=== PATIENT | female | born 1935 | race Caucasian/White ===

== ENCOUNTER 2017-09-27 15:01 | Emergency (ER) | payer MEDICARE ==
[2017-09-27] MEDS ORDERED: ORPHENADRINE CITRATE 60MG/2ML VIAL IM ONE (15:15)
--- NOTE | 2017-09-27 15:19 | Emergency Department Record ---
History of Present Illness - General Chief Complaint: Back Pain/Injury Stated Complaint: BACK SPASMS Time Seen by Provider: 09/27/17 15:14 Source: Patient, Family Mode of Arrival: Ambulatory Limitations: No limitations - History of Present Illness Initial Comments: 82 yo female presents with right sided back/flank pain. The pain is sharp. No fevers or chills. No nausea or vomiting. She states the pain starts in her flank and radiates around. Her gall bladder has been removed. The pain does occur with moving. She is better if still. Twisting to the side makes the pain occur. No pain down the leg. No weakness. No rash. No hematuria. MD Complaint: Back pain -: Days(s) (2) Similar Symptoms Previously: Yes Place: Home Radiation: None Severity: Moderate Quality: Sharp, Stabbing Consistency: Intermittent Improves With: Immobilization Worsens With: Movement Context: Bending Associated Symptoms: Denies other symptoms - Related Data Home Medications Medication Instructions Recorded Confirmed Last Taken Cyclobenzaprine HCl [Flexeril] 5 mg PO ASDIR 09/27/17 09/27/17 09/27/17 Oxycodone HCl/Acetaminophen 1 tab PO Q6H PRN 09/27/17 09/27/17 09/27/17 [Percocet 5mg/325mg] Allergies Allergy/AdvReac Type Severity Reaction Status Date / Time codeine Allergy Unknown NAUSEA AND Unverified 03/28/16 18:46 VOMITING hydromorphone HCl Allergy Unknown ALTERED Unverified 03/28/16 18:46 [From Dilaudid] MENTAL STATUS Allergies: Allergy Unknown HYPERSENSIT Uncoded 05/11/15 18:20 IVITY Review of Systems Constitutional: Denies: Chills, Fever, Malaise, Weakness Eyes: Denies: Eye discharge ENT: Denies: Congestion, Throat pain Respiratory: Denies: Cough, Dyspnea, Wheezes Cardiovascular: Denies: Chest pain, Palpitations, Syncope Endocrine: Denies: Fatigue, Polydipsia, Polyuria Gastrointestinal: Reports: Abdominal pain (flank pain on the right). Denies: Diarrhea, Nausea, Vomiting Genitourinary: Denies: Dysuria, Urgency Musculoskeletal: Reports: Back pain. Denies: Arthralgia, Joint swelling, Myalgia Skin: Denies: Bruising, Change in color, Rash Neurological: Denies: Confusion, Headache, Numbness Psychiatric: Denies: Anxiety Hematological/Lymphatic: Denies: Easy bleeding, Easy bruising, Swollen glands Past Medical History - SOCIAL HISTORY Smoking Status: Light tobacco smoker (<10/day) - RESPIRATORY Hx Respiratory Disorders: No - CARDIOVASCULAR Hx Cardio Disorders: Yes Hx Hypertension: Yes Comment:: Pt states that she has very minor HTN, Will follow up with PCP - NEURO Hx Neuro Disorders: No - GI Hx GI Disorders: Yes Hx Diverticulitis: Yes Hx Reflux: Yes Hx Obstructive Bowel: Yes (Bowel surgery in 1966) - Hx Genitourinary Disorders: No Comment:: weak bladder, stress incontinence - ENDOCRINE Hx Endocrine Disorders: No Hx Diabetes: No Hx Thyroid Disease: No - MUSCULOSKELETAL Hx Musculoskeletal Disorders: Yes Hx Arthritis: Yes - PSYCH Hx Psych Problems: No - HEMATOLOGY/ONCOLOGY Hx Hematology/Oncology Disorders: No Family Medical History Hx Cancer: Mother, Brother/Sister Hx Diabetes: Mother, Brother/Sister Hx Heart Disease: Mother Hx HTN: Mother Hx Kidney Disease: Brother/Sister Hx Stroke: Brother/Sister Physical Exam - General General Appearance: Alert, Oriented x3, Cooperative, No acute distress Limitations: No limitations - Head Head exam: Normal inspection - Eye Eye exam: Normal appearance, PERRL. negative: Conjunctival injection, Scleral icterus - ENT ENT exam: Normal exam, Mucous membranes moist Ear exam: Normal external inspection Nasal Exam: Normal inspection Mouth exam: Normal external inspection Teeth exam: Normal inspection - Neck Neck exam: Normal inspection, Full ROM. negative: Tenderness - Respiratory Respiratory exam: Normal lung sounds bilaterally. negative: Respiratory distress, Rhonchi, Stridor, Wheezes - Cardiovascular Cardiovascular Exam: Regular rate, Normal rhythm, Normal heart sounds - GI/Abdominal GI/Abdominal exam: Soft. negative: Tenderness - Rectal Rectal exam: Deferred - exam: Deferred - Extremities Extremities exam: Normal inspection, Full ROM, Normal capillary refill. negative: Joint swelling, Tenderness - Back Back exam: Reports: Normal inspection, CVA tenderness (R), Muscle spasm, Paraspinal tenderness, Tenderness, Vertebral tenderness. Denies: CVA tenderness (L), Full ROM, Rash noted - Neurological Neurological exam: Alert, Normal gait, Oriented X3 - Psychiatric Psychiatric exam: Normal affect, Normal mood. negative: Agitated, Anxious - Skin Skin exam: Dry, Intact, Normal color, Warm Course - Reevaluation(s) Reevaluation #1: 09/27/17 17:02 The CBC and BMP were reviewed No acute changes The UA is negative for acute infection or process 09/27/17 17:17 On recheck the examination is unchanged The pain is still very reproducible with twisting, bending, moving and tolerated well if still The CT scan was negative for acute process The patient was given warnings for extra help the next several days, caution with pain medication, always walk with help to avoid falls and take a stool softener to avoid constipation. 09/27/17 17:24 Medical Decision Making - Lab Data Result diagrams: 09/27/17 16:15 09/27/17 16:15 Disposition Disposition: Discharge Clinical Impression: Back muscle spasm Back pain Qualifiers: Back pain location: back pain in unspecified location Chronicity: acute Back pain laterality: right Qualified Code(s): M54.9 - Dorsalgia, unspecified Disposition: Home, Self-Care Condition: (1) Good Instructions: Low Back Strain (ED) Additional Instructions: Return to be seen if worse, any new symptoms or concerns Call your doctor for close follow up and to recheck this ER visit and the final results Continue your home pain medication and muscle relaxant you started yesterday and filled today Forms: Patient Portal Access Time of Disposition: 17:21 Quality - Quality Measures Quality Measures: Blunt Head Trauma (>2yr) - Blunt Head Trauma - Adult Quality Measure: Measure #415: Utilization of CT for Minor Blunt Head Trauma ICD10 Codes Entered: Yes Was CT ordered: No Sacaton Score: Please complete Aniyah Coma Scale above Utilization of CT for Minor Blunt Head Trauma: Not Eligible For Measure Additional Inclusion Criteria: More than 24hrs (OR) GCS not 15 (OR) CT not ordered. Not Eligible Reason: CT Not Ordered - Blood Pressure Screening Does Patient Have Any of the Following: No Blood Pressure Classification: Normal BP Reading Systolic Measurement: 114 Diastolic Measurement: 63 Screening for High Blood Pressure: < Normal BP, F/U Not Required > [G8783]
[2017-09-27] MEDS ORDERED: MORPHINE SULFATE 4MG/ML PREFILLED SYRINGE IVP ONE (15:32)
[2017-09-27 16:32] LABS: HEMATOCRIT 43.1 % (35.0-47.0); HEMOGLOBIN 14.2 gm/dl (11.6-16.0); MEAN CELL VOLUME 88.7 fl (81-97); MEAN CORPUSCULAR HEMOGLOBIN 29.2 pg (27-33); MEAN CORPUSCULAR HGB CONC 32.9 g/dl (32-36); MEAN PLATELET VOLUME 10.8 fl (7.4-10.4); PLATELET COUNT 312 K/uL (130-400); RED BLOOD COUNT 4.86 M/uL (3.80-5.40); WHITE BLOOD COUNT W/O DIFF 10.4 K/uL (4.2-12.2)
[2017-09-27 16:34] LABS: URINE APPEARANCE CLEAR; URINE BILIRUBIN NEGATIVE (NEGATIVE); URINE BLOOD TRACE-I (NEGATIVE); URINE COLOR ORANGE; URINE GLUCOSE (UA) NEGATIVE (NEGATIVE); URINE KETONE NEGATIVE (NEGATIVE); URINE LEUKOCYTE ESTERASE TRACE (NEGATIVE); URINE NITRITE NEGATIVE (NEGATIVE); URINE PROTEIN NEGATIVE (NEGATIVE)
[2017-09-27 16:49] LABS: BLOOD UREA NITROGEN 12 mg/dL (8-23); CREATININE 0.8 mg/dL (0.5-0.9); EST GLOMERULAR FILTRATION RATE > 60 mL/min
[2017-09-27 16:51] LABS: GLUCOSE,RANDOM 116 mg/dL (74-109); URINE BACTERIA NONE SEEN; URINE RBC NONE SEEN (NONE SEEN); URINE WBC 0 - 2 (0-2/hpf)
[2017-09-27] MEDS ORDERED: KETOROLAC 30 MG/ML VIAL IVP ONE (17:01)
--- NOTE | 2017-09-29 14:28 | CT SCAN REPORT ---
EXAM: CT SCAN ABDOMEN/PELVIS WO CONTRAST HISTORY: LOWER ABDOMINAL AND BACK PAIN. TECHNIQUE: Helical CT scan of the abdomen and pelvis obtained without intravenous contrast. Patient did not receive oral contrast. COMPARISON: CT abdomen and pelvis with contrast 07/05/2006, bilateral adrenal nodules. FINDINGS: Lung bases show minimal linear scar in the right lower lobe. Limited evaluation of the solid organs and vascular structures without intravenous contrast. 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 Stable bilateral adrenal adenomas. Slight increased size of the right renal cyst, which measures 6.8 cm. No hydronephrosis or renal calculi.Bowel has normal caliber. Moderate colonic diverticulosis, no acute inflammatory changes. No ascites or adenopathy. No extraluminal gas. Moderate scoliosis and degenerative change of the lumbar spine. IMPRESSION: 1. NO ACUTE ABNORMALITIES ARE IDENTIFIED IN THE ABDOMEN AND PELVIS. 2. STABLE BILATERAL ADRENAL ADENOMAS. 3. MODERATE DEGENERATIVE CHANGES OF THE LUMBAR SPINE. JOB NUMBER: [id number] MTDD
== END 2017-09-27 18:04 | disposition home or self-care (01) ==
LOC: ER 15:01
DX: M62.830 Muscle spasm of back (principal); M54.5 Low back pain; I10 Essential (primary) hypertension; F17.210 Nicotine dependence, cigarettes, uncomplicated
CPT/HCPCS: 99284 ×2; 96374; 96372; 96375; 80048; 81001; 85027; 74176; J1885; J2274; J2360

== ENCOUNTER 2018-09-09 14:43 | Inpatient (IN) | payer MEDICARE ==
[~2018-09-09 14:43] MED LIST: ONDANSETRON 4 MG ODT TABLET SL PRN
[2018-09-09] MEDS: METOCLOPRAMIDE 10 MG TABLET PO SCH ×2 (17:02→21:51)
[2018-09-09] MEDS: ACETAMINOPHEN 325 MG TAB PO PRN (18:00)
--- NOTE | 2018-09-09 18:36 | History & Physical ---
History of Present Illness - Date Date of Service for History & Physical: 09/09/18 - History of Present Illness Admitting Diagnosis: Deconditioning r/t fall, head injury, and L foot osteomyelitis. History of Present Illness: Erendira Early is an 82 y.o. F who admits to the Swing Bed Program d/t physical deconditioning and need for IV Therapy. Was recently hospitalized at [facility] from 08/26/2018 to 08/29/2018 for surgical debridement and removal of fixation screws with placement of antibiotic cement/beads d/t hx of left ankle fx that developed osteomyelitis. While there, she was seen by I.D. (Dr. Rogelio Srivastava) and was placed on Cefepime 2grams IVPB q. 12 hours and Levaquin 750mg PO q. 48 hours through 10/23/2018. She was discharged home with outpatient IV Therapy. While being transferred during her outpatient IV therapy, she fell out of her wheelchair and hit the back of her head. She was admitted to [facility] from 08/30/18 to 09/09/18 d/t subarachnoid hemorrhage and closed fracture of the occipital bone. Now has postconcussive syndrome. Other PMHx includes anxiety, depression, arthritis, skin cancer, GERD, incontinence. 09/09/18 1700 Reports that she has a left frontal headache. Helps when she wears sunglasses. Is doing well with Tylenol for pain control. Doesn't feel a need to take Oxycodone as was ordered in the hospital. Has been very dizzy. Was put on Reglan, Scopalomine patch, Zofran and Antivert with little effectiveness. Reports that bowels are moving now, although they weren't a few days ago. General - Cognitive Patterns Orientation: Oriented x3 - Communication Preferred Language?: Occitan Comprehension Ability: No Impairment Select best description of speech pattern: Clear Speech Ability to express ideas and wants: Understood Understanding verbal content: Understands - Psychosocial Well-Being Usual Living Arrangement: Children - Dental Status Unable to examine: No Broken or loosely fitting full or partial dentures: No No natural teeth or tooth fragment(s) (edentulous): No Abnormal mouth tissue (ulcers, masses, oral lesions, etc.): No Obvious or likely cavity or broken natural teeth: No Inflamed or bleeding gums or loose natural teeth: No Mouth/facial pain, discomfort or difficulty chewing: No - Nutrition Screening Poor oral intake > 1 week: No Unplanned weight loss in specified time frame: No Nutrition Support via tube feedings or parenteral nutrition: No Pressure Ulcer: No Significantly underweight define as BMI <18.5 kg/m2: No Albumin <2.5mg/dL: No Persistent nausea/vomiting/diarrhea >3 days: Yes Difficulty chewing/swallowing/mouth sores: No Admitting Diagnosis: No Nutrition Risk Score: Moderate Risk Review of Systems Reviewed: No additional complaints except as noted below Constitutional: Denies: Chills, Fever Eyes: Reports: Photophobia (d/t head injury) Respiratory: Denies: Cough, Dyspnea Cardiovascular: Denies: Chest pain, Dyspnea on exertion, Palpitations Gastrointestinal: Reports: Nausea. Denies: Abdominal pain, Constipation Genitourinary: Reports: Incontinence Neurological: Reports: Headache. Denies: Seizure Past Medical History - SOCIAL HISTORY Smoking Status: Light tobacco smoker (<10/day) - SURGICAL HISTORY Past Surgical History: hysterectomy. appendix. bowel. gallbladder. left shoulder repair. screws and plate in left foot r/t fx. left foot/ankle - RESPIRATORY Hx Respiratory Disorders: No - CARDIOVASCULAR Hx Cardio Disorders: Yes Hx Hypertension: Yes - NEURO Hx Neuro Disorders: No Hx Dizziness: Yes Comment:: hemmorhage - GI Hx GI Disorders: Yes Hx Diverticulitis: Yes Hx Reflux: Yes Hx Obstructive Bowel: Yes (Bowel surgery in 1966) - Hx Genitourinary Disorders: No Comment:: weak bladder, stress incontinence - ENDOCRINE Hx Endocrine Disorders: No Hx Diabetes: No Hx Thyroid Disease: No - MUSCULOSKELETAL Hx Musculoskeletal Disorders: Yes Hx Arthritis: Yes Comment:: osteomyelitis - PSYCH Hx Psych Problems: No - HEMATOLOGY/ONCOLOGY Hx Hematology/Oncology Disorders: No Family Medical History Any Significant Family History?: Yes Hx Cancer: Mother, Brother/Sister Hx Diabetes: Mother, Brother/Sister Hx Heart Disease: Mother Hx HTN: Mother Hx Kidney Disease: Brother/Sister Hx Stroke: Brother/Sister H&P Meds/Allergies - Allergies Allergies: Allergies Allergy/AdvReac Type Severity Reaction Status Date / Time codeine Allergy Unknown NAUSEA AND Unverified 03/28/16 18:46 VOMITING hydromorphone HCl Allergy Unknown ALTERED Unverified 03/28/16 18:46 [From Dilaudid] MENTAL STATUS Allergies: Allergy Unknown HYPERSENSIT Uncoded 05/11/15 18:20 IVITY - Active Medications Active Medications: Current Medications Acetaminophen (Tylenol 325mg) 650 mg PO Q4H PRN PRN Reason: PAIN - MILD TO MODERATE (1-7) Last Admin: 09/09/18 18:00 Dose: 650 mg Documented by: Enoxaparin Sodium (Lovenox) 40 mg SQ DAILY [facility] CEFEPIME HCL 2 gm/ Sodium (Chloride) 100 mls @ 200 mls/hr IVPB Q12HR [facility] Stop: 10/23/18 22:29 Levofloxacin (Levaquin Tab) 750 mg PO DAILY [facility] Stop: 10/23/18 10:01 Metoclopramide HCl (Reglan) 5 mg PO QIDACHS [facility] Last Admin: 09/09/18 17:02 Dose: 5 mg Documented by: Ondansetron HCl (Zofran Odt) 4 mg SL Q8H PRN PRN Reason: NAUSEA Pantoprazole Sodium (Protonix) 40 mg PO DAILYAC [facility] Polyethylene Glycol (Miralax) 17 gm PO DAILY [facility] Sertraline HCl (Zoloft) 100 mg PO DAILY [facility] Vitamin D (Vitamin D3) 1,000 unit PO DAILY [facility] Physical Exam - Vital Signs Vital Signs: Vital Signs - Last 24 Hrs Temp Pulse Resp BP Pulse Ox 09/09/18 14:45 98.5 F 53 L 16 132/73 98 - General General Appearance: Alert, Cooperative, No acute distress Limitations: Physical limitation (NWB to LLE) - Respiratory Respiratory exam: Normal lung sounds bilaterally - Cardiovascular Cardiovascular Exam: Regular rate, Normal rhythm, Normal heart sounds Peripheral Pulses: 2+: Dorsalis Pedis (R), Dorsalis Pedis (L) - GI/Abdominal GI/Abdominal exam: Soft, Normal bowel sounds - Extremities Extremities exam: Normal capillary refill, Other (sutures intact to left ankle, no signs of infection) - Neurological Neurological exam: Alert - Skin Skin exam: Dry Discharge Potential - Discharge Needs Community Services Used Prior to Admission: IV Therapy Patient Discharge Plan Description: Return Home Community Services Needed at Discharge: IV Therapy Plan - Swing Bed Certification Initial Certification Due: 09/09/18 14 Day Re-Cert Due: 09/23/18 44 Day Re-Cert Due: 10/23/18 74 Day Re-Cert Due: 11/22/18 - Detailed Diagnosis and Plan (1) Ankle osteomyelitis, left Current Visit: Yes Status: Acute Base Code: M86.9 - OSTEOMYELITIS, UNSPECIFIED Comment: 09/09/18 -Hx of subtalar fusion in July [address] Edwardo Henson -Evidence of failed fusion with CT on 08/23/18 -Underwent debridement and washout on 08/26/18 @ [facility] with Dr. Fady Henson -Followed by Infectious Disease - Dr. Rogelio Srivastava -IV Cefepime BID and Levaquin 750mg PO daily through 10/23/18 -NWB LLE (2) Post concussion syndrome Current Visit: Yes Status: Acute Base Code: F07.81 - POSTCONCUSSIONAL SYNDROME Comment: 09/09/18 -Dizziness/Nausea: stopped Antivert d/t BEERS list (and not effective) Continue Scopalomine patch for now Continue Reglan 5mg PO QID Continue Zofran 4mg q. 8 hours -Headache: Continue Tylenol 650mg PO q. 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 Current Visit: Yes Status: Acute Base Code: Z79.2 - INTERMEDIATE (CURRENT) USE OF ANTIBIOTICS Comment: 09/09/18 -Therapy needed to treat Osteomyelitis to left ankle -IV Cefepime BID through 10/23/18 -PO Levaquin daily through 10/23/18 (4) Physical deconditioning Current Visit: Yes Status: Acute Base Code: R53.81 - OTHER MALAISE Comment: 09/09/18 -PT/OT to evaluate and treat (5) Full code status Current Visit: Yes Status: Acute Base Code: Z78.9 - OTHER SPECIFIED HEALTH STATUS Comment: 09/09/18 -Full code this admission (6) DVT prophylaxis Current Visit: Yes Status: Acute Base Code: Z29.9 - ENCOUNTER FOR PROPHYLACTIC MEASURES, UNSPECIFIED Comment: 09/09/18 -Continue Lovenox 40mg subq daily
[2018-09-09] MEDS ORDERED: PNEUM 13-VAL/PF 0.5 ML IM ONE (20:47)
[2018-09-09] MEDS: CEFEPIME HCL 2 GM in 0.9 % SODIUM CHLORIDE 100ML 100 ML IVPB SCH (21:59)
[2018-09-10] MEDS: ACETAMINOPHEN 325 MG TAB PO PRN ×3 (06:22→18:15)
[2018-09-10] MEDS: METOCLOPRAMIDE 10 MG TABLET PO SCH ×5 (06:23→21:34)
[2018-09-10] MEDS: PANTOPRAZOLE SODIUM 40 MG TABLET PO SCH (06:23)
--- NOTE | 2018-09-10 09:48 | Rehab Evaluation ---
Patient Information - Patient Information Diagnosis: Deconditioning r/t fall, head injury and L foot osteomy Ordered Treatment: PT Evaluate and Treat Status: Initial Evaluation Past Medical/Surgical Hx: PAST MEDICAL/SURGICAL HISTORY Past Surgical History hysterectomy appendix bowel gallbladder left shoulder repair screws and plate in left foot r/t fx left foot/ankle PMH - Respiratory Hx Respiratory Disorders No PMH - Cardiovascular Hx Cardiovascular Disorders Yes Hx Hypertension Yes Comment: Pt states that she has very minor HTN, Will follow up with PCP PMH - Neuro Hx Neurological Disorders No Hx Dizziness Yes Comment: hemmorhage PMH - GI Hx Gastrointestinal Disorders Yes Hx Diverticulitis Yes Hx Gastroesophageal Reflux Yes Hx Obstructive Bowel Yes: Bowel surgery in 1966 PMH - Hx Genitourinary Disorders No Comment: weak bladder, stress incontinence PMH - Endocrine Hx Endocrine Disorders No Hx Diabetes No Hx Thyroid Disease No PMH - Musculoskeletal Hx Musculoskeletal Disorders Yes Hx Arthritis Yes Comment: osteomyelitis PMH - Psych Hx Psychiatric Problems No PMH - Hematology/Oncology Hx Hematology/Oncology No Disorders Premorbid Status: Detail (Patient received surgery on L ankle following a fracture approximately 1 year ago, but acquired osteomyelitis and required surgical intervention. Patient was discharged and was receiving outpatient IV therapy when she fell out of her wheelchair and hit her head. Patient was diagnosed with subarachnoid hemorrhage and fx of occipital bone from [facility]. Patient reports that over the past year following initial surgery, she has not fully recovered and has been using the wheelchair for her primary method of locomotion. Patient reports that she requires help from her daughter getting settled in the shower but is able to bathe herself independently. Patient's daughter reports that she would like her to work on strengthening her arms and legs to aide in transfers.) Social History: Detail (Patient previously lived with her daughter but will be living with her oldest daughter upon discharge. Her eldest daughter is and both are retired and are able to help patient with ADL's. Patient reports that there is a ramp for the entrance of the home with no stairs throughout the home. Patient reports that the bathroom has a tub, but has a shower bench present with a hand-held shower. No grab bars are present, but there are grab bars present on the shower bench. Patient reports that the toilet is elevated and has handles around it but no grab bars around the toilet. Patient also reports that she has a commode available. Patient reports that her primary goal is to be discharged by next Sunday to attend grandson's graduation.) - Time With Patient Total Time Spent With Patient (Min): 40 Treatment Procedures: Detail (low complexity) Subjective Information - Subjective Information Per Patient (Patient reported at initial portion of evaluation that she felt nauseous and slightly dizzy, but had no reports of pain. Patient also reported that dizziness increased from transitioning from supine to sitting EOB, with reports of the room spinning. Sunglasses and cold compress assisted in relieving of symptoms.) Objective Data - Mental Status Patient Orientation: Oriented x3 - Visual Perception Deficit (Patient reports that vision following fall is slightly blurred, but is likely result of postconcussion syndrome.) - ROM Not within normal limits (Left ankle range of motion is limited due to status post-surgery, as expected. All other range of motion of lower extremity was assessed and found to be within normal limits.) - Strength/Tone Not within normal limits (Patient's lower extremity range of motion was assessed and hip flexion 3/5 bilaterally with no reports of pain. All other range of motion except left ankle DF, and PF were assessed and determined to be 5/5.) - Coordination Appears within normal limits for therapeutic activities (Patient's lower extremity coordination was assessed functionally with patient sitting L EOB and putting on her pants and right sock. Patient was stable throughout with SBAx2 for safety.) - Bed Mobility Independent (Patient began therapy session supine in hospital bed and transfered to left EOB with supervision x2. Patient required verbal cueing on breathing and slowing down with the transfer due to vertigo signs and symptoms. When returning from sitting left EOB to supine, patient was independent with supervision x2, but required maximal assist x2 for scooting up in bed.) - Balance Balance Sitting: Good (Patient was assessed with sitting balance by sitting L EOB while weight shifting and utilizing core muscle activation for stabilization to put on pants. Patient also presented functional sitting core strength during manual muscle test and did not require assistance to maintain balance.) Therapy Assessment - Therapy Assessment Detail (Patient was dizzy and nauseous throughout therapy session. Patient reports that dizziness symptoms consist of the room spinning, turning to the left, and with transitional movements. Symptoms imply possible vertigo involvement, but is difficult to determine fully at this time due to post-concu ssive symptoms. Upon transfering from supine to sitting, patient had increased signs and symptoms of dizziness, but once keeping head in midline patient reported that symptoms decreased. Patient demonstrated sufficient core strength for sitting balance activities. Lower extremity muscle strength except for the left ankle was assessed. Bilateral hip flexion was rated 3/5 and is likely due to the patient being wheelchair bound over the past year. Patient's daughter reports that they would like patient to gain strength in upper and lower extremities to assist in transfers. Patient also reports that she would like to attend her grandson's graduation in 2 weeks. Therefore, further strength training, transfer training, sitting tolerance, core strengthening, and wheelchair propulsion would be beneficial treatment focuses to meet patient and family member's goals and reach patient's prior level of function.) Problem List - Problem List Physical Therapy Problem List: Detail (1. Decreased sitting tolerance due to vertigo / post-concussive symptoms. 2. Decreased hip flexion strength impacting transfers and bed mobility. 3. Decreased tolerance for wheelchair propulsion for independent mobility.) Goals - Goals Physical Therapy Goals: 1. Patient will tolerate sitting for 20 minutes consistently to complete seated exercises and progress patient towards goal of sitting at [facility] graduation. 2. Will assess pivot transfer from sitting EOB to wheelchair. 3. Will assess patient's wheelchair mobility. Prognosis - Prognosis Moderate (Patient presents functional sitting balance to aide in ADL's. Patient is able to progress in strength to meet family's goals on easier transfers and bed mobility. However, patient is limited due to her vertigo / post-concussion syndrome symptoms and it is impacting her ability to meet these goals at this time. With further strengthening, she is expected to improve in transfers, but it is difficult to determine at this time how much her symptoms from her vertigo / concussion will subside at this time.) Plan - Plan Physical Therapy Plan: Patient is recommended to receive subacute therapy 1-2x a day Sunday-Sunday to focus on improving patient's strength, transfers, bed mobility, sitting tolerance, and wheelchair mobility.
[2018-09-10] MEDS: SCOPOLAMINE 1 PATCH TDSY TD SCH (10:11)
[2018-09-10] MEDS: CHOLECALCIFEROL 1,000 UNIT TABLET PO SCH (10:11)
[2018-09-10] MEDS: POLYETHYLENE GLY 17 GM PACKET PO SCH (10:11)
[2018-09-10] MEDS: LEVOFLOXACIN 500 MG TABLET PO SCH (10:11)
[2018-09-10] MEDS: REMOVE PATCH 1 EACH MISC TD SCH (10:11)
[2018-09-10] MEDS: ENOXAPARIN 40 MG/0.4 ML SYR SQ SCH (10:12)
[2018-09-10] MEDS: SERTRALINE HCL 50 MG TABLET PO SCH (10:13)
[2018-09-10] MEDS: CEFEPIME HCL 2 GM in 0.9 % SODIUM CHLORIDE 100ML 100 ML IVPB SCH ×2 (10:13→21:35)
--- NOTE | 2018-09-10 12:25 | Rehab Evaluation ---
Patient Information - Patient Information Diagnosis: Deconditioning r/t fall, head injury and L foot osteomyelitis Ordered Treatment: OT Evaluate and Treat Status: Initial Evaluation Past Medical/Surgical Hx: PAST MEDICAL/SURGICAL HISTORY Past Surgical History hysterectomy appendix bowel gallbladder left shoulder repair screws and plate in left foot r/t fx left foot/ankle PMH - Respiratory Hx Respiratory Disorders No PMH - Cardiovascular Hx Cardiovascular Disorders Yes Hx Hypertension Yes Comment: Pt states that she has very minor HTN, Will follow up with PCP PMH - Neuro Hx Neurological Disorders No Hx Dizziness Yes Comment: hemmorhage PMH - GI Hx Gastrointestinal Disorders Yes Hx Diverticulitis Yes Hx Gastroesophageal Reflux Yes Hx Obstructive Bowel Yes: Bowel surgery in 1966 PMH - Hx Genitourinary Disorders No Comment: weak bladder, stress incontinence PMH - Endocrine Hx Endocrine Disorders No Hx Diabetes No Hx Thyroid Disease No PMH - Musculoskeletal Hx Musculoskeletal Disorders Yes Hx Arthritis Yes Comment: osteomyelitis PMH - Psych Hx Psychiatric Problems No PMH - Hematology/Oncology Hx Hematology/Oncology No Disorders Premorbid Status: Detail (Patient received surgery on L ankle following a fracture approximately 1 year ago, but acquired osteomyelitis and required surgical intervention. Patient was discharged and was receiving outpatient IV therapy when she fell out of her wheelchair and hit her head. Patient was diagnosed with subarachnoid hemorrhage and fx of occipital bone from [facility]. Patient reports that over the past year following initial surgery, she has not fully recovered and has been using the wheelchair for her primary method of locomotion. Patient reports that she requires help from her daughter getting settled in the shower but is able to bathe herself independently. Patient's daughter reports that she would like her to work on strengthening her arms and legs to aide in transfers.) Social History: Detail (Patient previously lived with her daughter but will be living with her oldest daughter upon discharge. Her eldest daughter is and both are retired and are able to help patient with ADL's. Patient reports that there is a ramp for the entrance of the home with no stairs throughout the home. Patient reports that the bathroom has a tub, but has a shower bench present with a hand-held shower. No grab bars are present, but there are grab bars present on the shower bench. Patient reports that the toilet is elevated and has handles around it but no grab bars around the toilet. Patient also reports that she has a commode available. Patient reports that her primary goal is to be discharged by next Sunday to attend grandson's graduation. She has an electric wheelchair, a 4 wheeled walker, a 2 wheeled walker and a manual wheelchair. Prior to this illness pt was Ind with dressing self, bathing self after being assisted with shower transfer, washing dishes while seated on a stool, propelling her wheelchair and transferring.) Precautions: [place], Fall, Other (Pt has significant dizziness at times. NWB left LE) - Time With Patient Total Time Spent With Patient (Min): 40 Treatment Procedures: Detail (OT eval low complexity) Subjective Information - Subjective Information Per Patient, Other (Per daughter) Objective Data - Pain Pain Present: No - Mental Status Patient Orientation: Oriented x3 - Visual Perception Appears within normal limits for therapeutic activities (Pt reports she does not wear glasses. No visual deficits were noted although pt reports some visual impairments at times since the fall.) - ROM Not within normal limits (Claudio shoulder flexion limited to 90 degrees, remaining claudio UE AROM WNL) - Strength/Tone Not within normal limits (Claudio shoulder strength 4-/5, claudio elbow flexion and extension 4/5, claudio vegetable vendor 4/5. Pt's daughter reports increased UE weakness due to decreased activity level over the last year.) - Coordination Appears within normal limits for therapeutic activities - Bed Mobility Needs Assist (Ind with supine to sit and sit to supine. Pt required max assist x 2 to scoot up in bed.) - Transfers Dependent (Not formally assessed due to patient feeling dizzy and fatigued.) - Balance Balance Sitting: Good - Sensation Intact - ADL's/IADL's Detail (Pt was able to don right slipper sock and hospital pants although she did not want to stand and pull pants over hips, she was able to partially pull pants over hips while lying in bed. Other self care tasks are being completed by nursing and/or family.) Therapy Assessment - Therapy Assessment Detail (Pt presents with decreased activity tolerance for functional mobility and ADLs, decreased Ind with self cares, impaired UE strength and endurance and decreased Ind and safety with functional mobility.) Problem List - Problem List Physical Therapy Problem List: Detail (1. Decreased sitting tolerance due to vertigo / post-concussive symptoms. 2. Decreased hip flexion strength impacting transfers and bed mobility. 3. Decreased tolerance for wheelchair propulsion for independent mobility.) Occupational Therapy Problem List: Detail (1. Decreased Ind with total body dressing. 2. Decreased Ind with showering. 3. Decreased UE strength/endurance and overall activity tolerance. 4. Decreased Ind and safety with functional mobility needed for Ind self cares.) Goals - Goals Physical Therapy Goals: 1. Patient will tolerate sitting for 20 minutes consistently to complete seated exercises and progress patient towards goal of sitting at grandson's graduation. 2. Will assess pivot transfer from sitting EOB to wheelchair. 3. Will assess patient's wheelchair mobility. Occupational Therapy Goals: 1. Pt will be Ind with total body dressing. 2. Pt will be Ind with showering in sitting. 3. Pt will improve overall endurance and UE strength to allow safe and Ind ADLs and functional mobility Prognosis - Prognosis Good Plan - Plan Physical Therapy Plan: Patient is recommended to receive subacute therapy 1-2x a day Sunday-Sunday to focus on improving patient's strength, transfers, bed mobility, sitting tolerance, and wheelchair mobility. Occupational Therapy Plan: OT 2-4 times per week to address self cares, endurance, UE strength and functional mobility needed for safe and Ind ADLs.
--- NOTE | 2018-09-10 16:59 | Physical Therapy Tx Note ---
Physical Therapy Tx Note - Treatment Note Tolerated: Poor Total Time Spent With Patient: 0 Physical Therapy Tx Note: Detail (Patient refused physical therapy due to not feeling well.) Physical Therapy Problem List: Detail (1. Decreased sitting tolerance due to vertigo / post-concussive symptoms. 2. Decreased hip flexion strength impacting transfers and bed mobility. 3. Decreased tolerance for wheelchair propulsion for independent mobility.) Physical Therapy Goals: 1. Patient will tolerate sitting for 20 minutes consistently to complete seated exercises and progress patient towards goal of sitting at grandson's graduation. 2. Will assess pivot transfer from sitting EOB to wheelchair. 3. Will assess patient's wheelchair mobility. Physical Therapy Plan: Patient is recommended to receive subacute therapy 1-2x a day Sunday-Sunday to focus on improving patient's strength, transfers, bed mobility, sitting tolerance, and wheelchair mobility.
[2018-09-11] MEDS: ACETAMINOPHEN 325 MG TAB PO PRN ×3 (06:31→17:34)
[2018-09-11] MEDS: PANTOPRAZOLE SODIUM 40 MG TABLET PO SCH (06:32)
[2018-09-11] MEDS: METOCLOPRAMIDE 10 MG TABLET PO SCH ×4 (06:32→22:00)
[2018-09-11] MEDS: SERTRALINE HCL 50 MG TABLET PO SCH (10:40)
[2018-09-11] MEDS: POLYETHYLENE GLY 17 GM PACKET PO SCH (10:40)
[2018-09-11] MEDS: CHOLECALCIFEROL 1,000 UNIT TABLET PO SCH (10:40)
[2018-09-11] MEDS: ENOXAPARIN 40 MG/0.4 ML SYR SQ SCH (10:41)
[2018-09-11] MEDS: CEFEPIME HCL 2 GM in 0.9 % SODIUM CHLORIDE 100ML 100 ML IVPB SCH ×2 (10:41→22:11)
[2018-09-11] MEDS: LEVOFLOXACIN 500 MG TABLET PO SCH (10:41)
--- NOTE | 2018-09-11 10:43 | Occupational Therapy Tx Note ---
Occupational Therapy Tx Note - Treatment Note Tolerated: Good Total Time Spent With Patient: 40 (ADL) Occupational Therapy Treatment Note: Detail (S: Pt resting in bed, reports nausea and headache but willing to participate. O: Supine to Indly with HOB raised and using bed rails. Pt able to complete brushing hair, washing face and oral hygiene with set up at bedside. Pt able to sit up at EOB for approx. 25 minutes without complaints of nausea. Pt completed standing pivot transfer from EOB to wheelchair with min assist x 1 and verbal cues for NWB status on LLE. Pt was not able to maintain WB status and reports this is how she has been transferring for a year. Pt propelled self to toilet with min assist. Stand pivot transfer to toilet with use of grab bars and CG assist. Pt removed briefs with mod assist to tear at sides. Pt toileted Indly and donned briefs Indly over feet. She was able to stand using grab bars and pull briefs over hips Indly. Pt pivoted to wheelchair with CG assist and propelled self to sink Indly. She washed hands Indly. Pt propelled self back to EOB and transferred into bed (quadruped) and to supine with SBA. A: Pt not able to maintain NWB on LLE with transfers, no c/o dizziness or nausea with treatment, Ind with gr ooming/hygiene after set up) Occupational Therapy Problem List: Detail (1. Decreased Ind with total body dressing. 2. Decreased Ind with showering. 3. Decreased UE streng th/endurance and overall activity tolerance. 4. Decreased Ind and safety with functional mobility needed for Ind self cares.) Occupational Therapy Goals: 1. Pt will be Ind with total body dressing. 2. Pt will be Ind with showering in sitting. 3. Pt will improve overall endurance and UE strength to allow safe and Ind ADLs and functional mobility Prognosis: Good Occupational Therapy Plan: OT 2-4 times per week to address self cares, endurance, UE strength and functional mobility needed for safe and Ind ADLs.
--- NOTE | 2018-09-11 13:05 | Physical Therapy Tx Note ---
Physical Therapy Tx Note - Treatment Note Physical Therapy Tx Note: Detail (Therapy session is a no charge and was jointly treated with occupational therapy. Patient reported dizziness initially in session, but was cued with pursed lip breathing and reported no symptoms throughout remainder of session. Patient began therapy session sitting L EOB completing ADL's such as toothbrushing, shaving, and combing hair. Patient transfered completing R pivot transfer to wheelchair. Patient refused to use walker to assist with transfer. Patient also was reminded to maintain her nonweight bearing status throughout transfer. Patient then propelled wheelchair with upper extremities 13 feet to the restroom. Patient completed standing pivot transfer with minimal assistance x1 to the right and refused to use the walker and refused to follow non-weight bearing status even with consistent cueing. Patient then completed standing pivot transfer from commode to wheelchair to the right with minimal assistance x1 with refusal to use 2-wheeled walker for support and broke precautions again. Patient then propelled wheelchair using upper extremities against vaca and feet against the floor, continuing to not follow precautions even with reminder from therapist. Patient then completed standing transfer climbing forward into bed and knelt on left knee, avoiding weight bearing on left ankle to get into bed with supervision x2. Patient then transfered into supine in bed with supervision x2 and was left with call light at end of session.) Physical Therapy Problem List: Detail (1. Decreased sitting tolerance due to vertigo / post-concussive symptoms. 2. Decreased hip flexion strength impacting transfers and bed mobility. 3. Decreased tolerance for wheelchair propulsion for independent mobility.) Physical Therapy Goals: 1. Patient will tolerate sitting for 20 minutes cons istently to complete seated exercises and progress patient towards goal of sitting at grandson's graduation. 2. Will assess pivot transfer from sitting EOB to wheelchair. 3. Will assess patient's wheelchair mobility. Physical Therapy Plan: Patient is recommended to receive subacute therapy 1-2x a day Sunday-Sunday to focus on improving patient's strength, transfers, bed mobility, sitting tolerance, and wheelchair mobility.
--- NOTE | 2018-09-11 16:13 | Physical Therapy Tx Note ---
Physical Therapy Tx Note - Treatment Note Total Time Spent With Patient: 30 Physical Therapy Tx Note: Detail (Patient began therapy session supine in bed with daughter present in room. Patient reported no signs or symptoms of dizziness or nausea throughout session. Patient was educated on resisted tricep and bicep curls with yellow theraband 15x bilaterally. Patient then completed SLR 10x, isometric quad sets 5s hold 10x, and isometric glut sets 5s hold 10x. Patient was left supine in bed with call light in hand at the end of the therapy session.) Physical Therapy Problem List: Detail (1. Decreased sitting tolerance due to vertigo / post-concussive symptoms. 2. Decreased hip flexion strength impacting transfers and bed mobility. 3. Decreased tolerance for wheelchair propulsion for independent mobility.) Physical Therapy Goals: 1. Patient will tolerate sitting for 20 minutes consistently to complete seated exercises and progress patient towards goal of sitting at grandson's graduation. 2. Will assess pivot transfer from sitting E OB to wheelchair. 3. Will assess patient's wheelchair mobility. Physical Therapy Plan: Patient is recommended to receive subacute therapy 1-2x a day Sunday-Sunday to focus on improving patient's strength, transfers, bed mobility, sitting tolerance, and wheelchair mobility.
[2018-09-12] MEDS: METOCLOPRAMIDE 10 MG TABLET PO SCH ×4 (06:33→22:09)
[2018-09-12] MEDS: PANTOPRAZOLE SODIUM 40 MG TABLET PO SCH (06:33)
[2018-09-12] MEDS: ENOXAPARIN 40 MG/0.4 ML SYR SQ SCH (09:24)
[2018-09-12] MEDS: CEFEPIME HCL 2 GM in 0.9 % SODIUM CHLORIDE 100ML 100 ML IVPB SCH ×2 (09:24→22:09)
[2018-09-12] MEDS: POLYETHYLENE GLY 17 GM PACKET PO SCH (09:25)
[2018-09-12] MEDS: LEVOFLOXACIN 500 MG TABLET PO SCH (09:25)
[2018-09-12] MEDS: SERTRALINE HCL 50 MG TABLET PO SCH (09:26)
[2018-09-12] MEDS: CHOLECALCIFEROL 1,000 UNIT TABLET PO SCH (09:26)
[2018-09-12] MEDS: ACETAMINOPHEN 325 MG TAB PO PRN ×2 (12:24→16:26)
--- NOTE | 2018-09-12 13:52 | Physical Therapy Tx Note ---
Physical Therapy Tx Note - Treatment Note Tolerated: Good Total Time Spent With Patient: 45 Physical Therapy Tx Note: Detail (Pt lying diagonally across bed with R LE over edge of bed, head of bed elevated. Pt's daughter Sarina present in room. Pt was independent w/bed mobility to sit at edge of bed, slowly; tolerated 8 minutes before independently returning to reclined position in bed. Complained of headache, dizziness, nausea; asked for emesis basin but no emesis. Provided w/wet washcloth on head, which helped. Participated with UE exercises w/yellow t-band: pull ups x 10 B, hor abd x 10 B, pull downs x 10 B, biceps curls x 10 B; and LE exercises: SLR x 10 B, hip abd x 10 B, heel slides x 10 B, hip add x 10 w/pillow. Declined attempting to sit up again. Provided w/ice chips for nausea. Left in bed w/call light in reach; dtr still present in room.) Physical Therapy Problem List: Detail (1. Decreased sitting tolerance due to vertigo / post-concussive symptoms. 2. Decreased hip flexion strength impacting transfers and bed mobility. 3. Decreased tolerance for wheelchair propulsion for independent mobility.) Physical Therapy Goals: 1. Patient will tolerate sitting for 20 minutes consistently to complete seated exercises and progress patient towards goal of sitting at grandson's graduation. 2. Will assess pivot transfer from sitting EOB to wheelchair. 3. Will assess patient's wheelchair mobility. Prognosis: Good Physical Therapy Plan: Patient is recommended to receive subacute therapy 1-2x a day Sunday-Sunday to focus on improving patient's strength, transfers, bed mobility, sitting tolerance, and wheelchair mobility.
--- NOTE | 2018-09-12 14:44 | Physical Therapy Tx Note ---
Physical Therapy Tx Note - Treatment Note Tolerated: Good Total Time Spent With Patient: 30 Physical Therapy Tx Note: Detail (Pt was supine in bed upon arrival. Pt states that she is in pain and does not want to get up to edge of bed. Pt did complete ex's of ankle pumps bilateral, heel slides on right, SLR bilaterally,all x 10 each. Pt completed UE flex and horizontal abduction x 10 bilateral each. Pt completed gluteal squeezes, quad sets, and elbow presses x 10 bilaterally each. Pt remained supine in bed after treatment and stated no increase in pain. Pt was given an ice pack to left foot/ankle for swelling.) Physical Therapy Problem List: Detail (1. Decreased sitting tolerance due to vertigo / post-concussive symptoms. 2. Decreased hip flexion strength impacting transfers and bed mobility. 3. Decreased tolerance for wheelchair propulsion for independent mobility.) Physical Therapy Goals: 1. Patient will tolerate sitting for 20 minutes consistently to complete seated exercises and progress patient towards goal of sitting at grandson's graduation. 2. Will assess pivot transfer from sitting EOB to wheelchair. 3. Will assess patient's wheelchair mobility. Prognosis: Good Physical Therapy Plan: Patient is recommended to receive subacute therapy 1-2x a day Sunday-Sunday to focus on improving patient's strength, transfers, bed mobility, sitting tolerance, and wheelchair mobility.
[2018-09-13] MEDS: METOCLOPRAMIDE 10 MG TABLET PO SCH ×4 (06:33→22:12)
[2018-09-13] MEDS: PANTOPRAZOLE SODIUM 40 MG TABLET PO SCH (06:34)
--- NOTE | 2018-09-13 10:28 | Occupational Therapy Tx Note ---
Occupational Therapy Tx Note - Treatment Note Tolerated: Good Total Time Spent With Patient: 45 (ADL) Occupational Therapy Treatment Note: Detail (S: Pt resting in bed, agreeable to shower. O: Supine to sit Indly although she had increased dizziness upon sitting up for a min. Pt was able to pivot transfer to wheelchair with min assist although she is refusing to use walker and is not able to maintain NWB on left foot. Pt propelled self to shower Indly and again pivot transferred to shower seat/commode with min assist. Pt doffed PJ gown Indly and briefs were doffed per OT. She was able to complete total body showering after set up Indly. Pt was able to dry self and apply deoderant and powder Indly. Pt donned bra with min assist, shirt Indly, briefs and pants with assist to pull up over buttocks while in standing. Pt donned right sock Indly. Pt transferred to toilet and completed toileting with assist for pants mgmt. Pt transferred back to wheelchair with CG assist and propelled self to room Indly. Pt brushed hair Indly. A: Pt had no c/o dizziness or nausea while performing self care tasks, she did have dizziness with supine to sit and after initial transfer into wheelchair. Pt is not able to maintain NWB status on left LE and is not ag reeable to using walker for transfers. She demonstrated significant improvement with endurance and self cares today.) Occupational Therapy Problem List: Detail (1. Decreased Ind with total body dressing. 2. Decreased Ind with showering. 3. Decreased UE strength/endurance and overall activity tolerance. 4. Decreased Ind and safety with functional mobility needed for Ind self cares.) Occupational Therapy Goals: 1. Pt will be Ind with total body dressing. 2. Pt will be Ind with showering in sitting. 3. Pt will improve overall endurance and UE strength to allow safe and Ind ADLs and functional mobility Prognosis: Good Occupational Therapy Plan: OT 2-4 times per week to address self cares, endurance, UE strength and functional mobility needed for safe and Ind ADLs.
[2018-09-13] MEDS: POLYETHYLENE GLY 17 GM PACKET PO SCH (11:30)
[2018-09-13] MEDS: LEVOFLOXACIN 500 MG TABLET PO SCH (11:30)
[2018-09-13] MEDS: CHOLECALCIFEROL 1,000 UNIT TABLET PO SCH (11:31)
[2018-09-13] MEDS: SERTRALINE HCL 50 MG TABLET PO SCH (11:31)
[2018-09-13] MEDS: ACETAMINOPHEN 325 MG TAB PO PRN ×2 (11:33→22:20)
[2018-09-13] MEDS: ENOXAPARIN 40 MG/0.4 ML SYR SQ SCH (11:33)
[2018-09-13] MEDS: REMOVE PATCH 1 EACH MISC TD SCH (11:34)
[2018-09-13] MEDS: SCOPOLAMINE 1 PATCH TDSY TD SCH (11:34)
[2018-09-13] MEDS: CEFEPIME HCL 2 GM in 0.9 % SODIUM CHLORIDE 100ML 100 ML IVPB SCH ×2 (11:34→22:12)
--- NOTE | 2018-09-13 15:56 | Physical Therapy Tx Note ---
Physical Therapy Tx Note - Treatment Note Tolerated: Poor Physical Therapy Tx Note: Detail (Upon entering room patient was supine in bed reporting that she was very nauseous and did not want to participate in therapy today. Patient reported that she had worked with OT and then visited the [facility] and sat up for 2 hours total prior to scheduled therapy session. Patient refused physical therapy but agreed to appointment on Sunday09/16/18.) Physical Therapy Problem List: Detail (1. Decreased sitting tolerance due to vertigo / post-concussive symptoms. 2. Decreased hip flexion strength impacting transfers and bed mobility. 3. Decreased tolerance for wheelchair propulsion for independent mobility.) Physical Therapy Goals: 1. Patient will tolerate sitting for 20 minutes consistently to complete seated exercises and progress patient towards goal of sitting at grandson's graduation. 2. Will assess pivot transfer from sitting EOB to wheelchair. 3. Will assess patient's wheelchair mobility. Physical Therapy Plan: Patient is recommended to receive subacute therapy 1-2x a day Sunday-Sunday to focus on improving patient's strength, transfers, bed mobility, sitting tolerance, and wheelchair mobility.
[2018-09-14] MEDS: ACETAMINOPHEN 325 MG TAB PO PRN ×2 (06:47→22:04)
[2018-09-14] MEDS: PANTOPRAZOLE SODIUM 40 MG TABLET PO SCH (06:49)
[2018-09-14] MEDS: METOCLOPRAMIDE 10 MG TABLET PO SCH ×4 (06:49→21:51)
--- NOTE | 2018-09-14 09:17 | Physician Progress Note ---
Subjective - Date Date of Physician Progress Note: 09/14/18 - Subjective Subjective Comment: On rounds this morning the patient is pleasant and doing well. She has no complaint and says that she is getting up out of bed and able go to the bathroom, take a shower and was able to go to the gift shop two days ago. The patient is excited about going to the [employer] with her family. Objective - Vital Signs Vital Signs: Vital Signs - Last 24 Hrs Temp Pulse Resp BP Pulse Ox 09/14/18 08:00 98.1 F 49 L 16 129/68 99 09/13/18 20:00 98.8 F 58 L 16 150/83 100 - General General Appearance: Alert, Cooperative, No acute distress Limitations: Physical limitation (NWB to LLE) - Respiratory Respiratory exam: Normal lung sounds bilaterally - Cardiovascular Cardiovascular Exam: Regular rate, Normal rhythm, Normal heart sounds Peripheral Pulses: 2+: Dorsalis Pedis (R), 3+: Radial (R), Radial (L) - GI/Abdominal GI/Abdominal exam: Soft, Normal bowel sounds - Extremities Extremities exam: Normal capillary refill, Other (left ankle dressed with guaze and boot ) - Neurological Neurological exam: Alert, Oriented X3 - Psychiatric Psychiatric exam: Normal affect, Normal mood - Skin Skin exam: Dry Assessment and Plan - Assessment and Plan (1) Physical deconditioning Current Visit: Yes Status: Acute Base Code: R53.81 - OTHER MALAISE Comment: 09/14/18: - PT/OT: Patient is participating in therapy but has had some dizziness which limits her progress. She is to continue therapy daily as tolerated. (2) Ankle osteomyelitis, left Current Visit: Yes Status: Acute Base Code: M86.9 - OSTEOMYELITIS, UNSPECIFIED Comment: 09/13/18 -Hx of subtalar fusion in July [address] Edwardo Henson -Evidence of failed fusion with CT on 08/23/18 -Underwent debridement and washout on 08/26/18 @ [facility] with Dr. Fady Henson -Followed by Infectious Disease - Dr. Rogelio Srivastava -IV Cefepime BID and Levaquin 750mg PO daily through 10/23/18 -NWB LLE (3) Post concussion syndrome Current Visit: Yes Status: Acute Base Code: F07.81 - POSTCONCUSSIONAL SYNDROME Comment: 09/14/18 - Pt still having dizzy spells. - Continue Scopalomine patch, Reglan 5mg PO QID, Zofran 4mg q. 8 hours, Tylenol 650mg q4h PRN (4) DVT prophylaxis Current Visit: Yes Status: Acute Base Code: Z29.9 - ENCOUNTER FOR PROPHYLACTIC MEASURES, UNSPECIFIED Comment: 09/14/18 -Continue Lovenox 40mg subq daily (5) Full code status Current Visit: Yes Status: Acute Base Code: Z78.9 - OTHER SPECIFIED HEALTH STATUS Comment: 09/14/18 -Full code this admission - Disposition Disposition: The patient is progressing well and is motivated to participate with PT/OT. She has a good prognosis and with completion of therapy and IV abx should be able to return home within 1-2 weeks. DVT/PE Assessment - Risk for VTE Risk for VTE: No Risk Level: High Risk Assessment Date: 09/14/18 Risk Assessment Time: 09:20 VTE Orders Placed or Will Be Placed: Yes - Active Medicaitons Current Medications: Current Medications Acetaminophen (Tylenol 325mg) 650 mg PO Q4H PRN PRN Reason: PAIN - MILD TO MODERATE (1-7) Last Admin: 09/14/18 06:47 Dose: 650 mg Documented by: Enoxaparin Sodium (Lovenox) 40 mg SQ DAILY [facility] Last Admin: 09/13/18 11:33 Dose: 40 mg Documented by: CEFEPIME HCL 2 gm/ Sodium (Chloride) 100 mls @ 200 mls/hr IVPB Q12HR [facility] Stop: 10/23/18 22:29 Last Infusion: 09/13/18 22:45 Dose: Infused Documented by: Levofloxacin (Levaquin Tab) 750 mg PO DAILY [facility] Stop: 10/23/18 10:01 Last Admin: 09/13/18 11:30 Dose: 750 mg Documented by: Metoclopramide HCl (Reglan) 5 mg PO QIDACHS [facility] Last Admin: 09/14/18 06:49 Dose: 5 mg Documented by: Miscellaneous (Remove Patch) 1 each TD Q72H [facility] Last Admin: 09/13/18 11:34 Dose: 1 each Documented by: Ondansetron HCl (Zofran Odt) 4 mg SL Q8H PRN PRN Reason: NAUSEA Pantoprazole Sodium (Protonix) 40 mg PO DAILYAC [facility] Last Admin: 09/14/18 06:49 Dose: 40 mg Documented by: Polyethylene Glycol (Miralax) 17 gm PO DAILY [facility] Last Admin: 09/13/18 11:30 Dose: Not Given Documented by: Scopolamine (Transderm-Scop) 1 patch TD Q72H [facility] Last Admin: 09/13/18 11:34 Dose: 1 patch Documented by: Sertraline HCl (Zoloft) 100 mg PO DAILY [facility] Last Admin: 09/13/18 11:31 Dose: 100 mg Documented by: Vitamin D (Vitamin D3) 1,000 unit PO DAILY [facility] Last Admin: 09/13/18 11:31 Dose: 1,000 unit Documented by:
[2018-09-14] MEDS: SERTRALINE HCL 50 MG TABLET PO SCH (10:20)
[2018-09-14] MEDS: ENOXAPARIN 40 MG/0.4 ML SYR SQ SCH (10:20)
[2018-09-14] MEDS: CHOLECALCIFEROL 1,000 UNIT TABLET PO SCH (10:20)
[2018-09-14] MEDS: LEVOFLOXACIN 500 MG TABLET PO SCH (10:21)
[2018-09-14] MEDS: POLYETHYLENE GLY 17 GM PACKET PO SCH (10:22)
[2018-09-14] MEDS: DOCUSATE SODIUM 100 MG CAPSULE PO SCH (10:22)
[2018-09-14] MEDS: CEFEPIME HCL 2 GM in 0.9 % SODIUM CHLORIDE 100ML 100 ML IVPB SCH ×2 (10:23→21:59)
[2018-09-15] MEDS: METOCLOPRAMIDE 10 MG TABLET PO SCH ×4 (06:38→21:34)
[2018-09-15] MEDS: PANTOPRAZOLE SODIUM 40 MG TABLET PO SCH (06:38)
[2018-09-15] MEDS: CEFEPIME HCL 2 GM in 0.9 % SODIUM CHLORIDE 100ML 100 ML IVPB SCH ×2 (10:25→21:38)
[2018-09-15] MEDS: LEVOFLOXACIN 500 MG TABLET PO SCH (10:26)
[2018-09-15] MEDS: SERTRALINE HCL 50 MG TABLET PO SCH (10:26)
[2018-09-15] MEDS: DOCUSATE SODIUM 100 MG CAPSULE PO SCH (10:26)
[2018-09-15] MEDS: CHOLECALCIFEROL 1,000 UNIT TABLET PO SCH (10:26)
[2018-09-15] MEDS: POLYETHYLENE GLY 17 GM PACKET PO SCH (10:26)
[2018-09-15] MEDS: ENOXAPARIN 40 MG/0.4 ML SYR SQ SCH (10:26)
[2018-09-15] MEDS: ACETAMINOPHEN 325 MG TAB PO PRN (21:36)
[2018-09-16] MEDS: METOCLOPRAMIDE 10 MG TABLET PO SCH ×4 (07:24→21:26)
[2018-09-16] MEDS: PANTOPRAZOLE SODIUM 40 MG TABLET PO SCH (07:24)
[2018-09-16] MEDS: CHOLECALCIFEROL 1,000 UNIT TABLET PO SCH (10:42)
[2018-09-16] MEDS: SERTRALINE HCL 50 MG TABLET PO SCH (10:42)
[2018-09-16] MEDS: LEVOFLOXACIN 500 MG TABLET PO SCH (10:42)
[2018-09-16] MEDS: DOCUSATE SODIUM 100 MG CAPSULE PO SCH (10:43)
[2018-09-16] MEDS: SCOPOLAMINE 1 PATCH TDSY TD SCH (10:43)
[2018-09-16] MEDS: REMOVE PATCH 1 EACH MISC TD SCH (10:43)
[2018-09-16] MEDS: ENOXAPARIN 40 MG/0.4 ML SYR SQ SCH (10:43)
[2018-09-16] MEDS: POLYETHYLENE GLY 17 GM PACKET PO SCH (10:43)
[2018-09-16] MEDS: CEFEPIME HCL 2 GM in 0.9 % SODIUM CHLORIDE 100ML 100 ML IVPB SCH ×3 (10:53→21:19)
--- NOTE | 2018-09-16 12:26 | Physical Therapy Tx Note ---
Physical Therapy Tx Note - Treatment Note Tolerated: Poor Total Time Spent With Patient: 0 Physical Therapy Tx Note: Detail (Patient was supine in bed upon start of therapy session. Patient refused physical therapy reporting that she was nauseous and was planning on going out with her daughters later that day. Patient was asked if she wanted to freshen up prior to leaving but patient declined.) Physical Therapy Problem List: Detail (1. Decreased sitting tolerance due to vertigo / post-concussive symptoms. 2. Decreased hip flexion strength impacting transfers and bed mobility. 3. Decreased tolerance for wheelchair propulsion for independent mobility.) Physical Therapy Goals: 1. Patient will tolerate sitting for 20 minutes consistently to complete seated exercises and progress patient towards goal of sitting at grandson's graduation. 2. Will assess pivot transfer from sitting EOB to wheelchair. 3. Will assess patient's wheelchair mobility. Physical Therapy Plan: Patient is recommended to receive subacute therapy 1-2x a day Sunday-Sunday to focus on improving patient's strength, transfers, bed mobility, sitting tolerance, and wheelchair mobility.
[2018-09-17] MEDS: PANTOPRAZOLE SODIUM 40 MG TABLET PO SCH (06:21)
[2018-09-17] MEDS: METOCLOPRAMIDE 10 MG TABLET PO SCH ×4 (08:10→21:10)
[2018-09-17] MEDS: CEFEPIME HCL 2 GM in 0.9 % SODIUM CHLORIDE 100ML 100 ML IVPB SCH ×2 (10:15→21:11)
[2018-09-17] MEDS: DOCUSATE SODIUM 100 MG CAPSULE PO SCH (10:15)
[2018-09-17] MEDS: SERTRALINE HCL 50 MG TABLET PO SCH (10:15)
[2018-09-17] MEDS: LEVOFLOXACIN 500 MG TABLET PO SCH (10:15)
[2018-09-17] MEDS: CHOLECALCIFEROL 1,000 UNIT TABLET PO SCH (10:15)
[2018-09-17] MEDS: POLYETHYLENE GLY 17 GM PACKET PO SCH (10:16)
[2018-09-17] MEDS: ENOXAPARIN 40 MG/0.4 ML SYR SQ SCH (10:16)
--- NOTE | 2018-09-17 13:54 | Occupational Therapy Tx Note ---
Occupational Therapy Tx Note - Treatment Note Tolerated: Good Total Time Spent With Patient: 40 (ADL, ther ex) Occupational Therapy Treatment Note: Detail (S: Pt resting in bed, agreeable to OT. O: Supine to sit Indly and pivot transferred to wheelchair with CG assist. Pt propelled self to toilet and completed pivot transfer using grab bar and she completed toileting Indly. Pt donned pants and she was able to stand at toilet using grab bar and pull pants over hips with CG assist. Pt transferred to wheelchair with SBA and propelled self to sink Indly, she washed hands indly. Pt donned slipper sock, bra and shirt Indly. Pt transported to rehab gym via wheelchair and completed marco antonio UE repetitive, overhead reaching with resistive clothespins x 35 reps each UE. Pt transported back to room via wheelchair. Pt pivot transferred into recliner with SBA and she was left with call button in reach. A: Ind with toileting and total body dressing, significant improvement in endurance and functional mobility.) Occupational Therapy Problem List: Detail (1. Decreased Ind with total body dressing. 2. Decreased Ind with showering. 3. Decreased UE strength/endurance and overall activity tolerance. 4. Decreased Ind and safety with functional mobility needed for Ind self cares.) Occupational Therapy Goals: 1. Pt will be Ind with total body dressing. 2. Pt will be Ind with showering in sitting. 3. Pt will improve overall endurance and UE strength to allow safe and Ind ADLs and functional mobility Prognosis: Good Occupational Therapy Plan: OT 2-4 times per week to address self cares, endurance, UE strength and functional mobility needed for safe and Ind ADLs.
--- NOTE | 2018-09-17 14:25 | Physical Therapy Tx Note ---
Physical Therapy Tx Note - Treatment Note Total Time Spent With Patient: 30 Physical Therapy Tx Note: Detail (Patient began therapy sitting in chair with daughter present in the room. Patient was assessed completing standing pivot transfer by crawling forward into chair with left knee first and swinging her body around to sit, while maintaining her nonweight bearing status with supervision assistance x1. Patient then propelled wheelchair total of 500 feet with rest breaks approximately every 50-100 feet. Patient propelled wheelchair up and down ramp into automatic doorway of the hospital and was able to propel over different surfaces. Patient afterwards completed vehicle transfer from [facility] into the van. Patient completed transfer with left knee first, then climbed forward into vehicle while maintaining nonweight bearing status of left ankle with supervision assistance x1. Patient did report slight dizziness during transfer, but was instructed to move slower and reported decreased signs/symptoms. Patient left with daughters and was signed out of hospital to go shopping at end of session.) Physical Therapy Problem List: Detail (1. Decreased sitting tolerance due to vertigo / post-concussive symptoms. 2. Decreased hip flexion strength impacting transfers and bed mobility. 3. Decreased tolerance for wheelchair propulsion for independent mobility.) Physical Therapy Goals: 1. Patient will tolerate sitting for 20 minutes c onsistently to complete seated exercises and progress patient towards goal of sitting at grandson's graduation. 2. Will assess pivot transfer from sitting EOB to wheelchair. 3. Will assess patient's wheelchair mobility. Physical Therapy Plan: Patient is recommended to receive subacute therapy 1-2x a day Sunday-Sunday to focus on improving patient's strength, transfers, bed mobility, sitting tolerance, and wheelchair mobility.
--- NOTE | 2018-09-17 21:53 | Physician Progress Note ---
Subjective - Date Date of Physician Progress Note: 09/17/18 - Subjective Location: Lower extremity Consistency: Intermittent Objective - Vital Signs Vital Signs: Vital Signs - Last 24 Hrs Temp Pulse Resp BP BP Pulse Ox 09/17/18 20:00 98.1 F 61 16 131/58 96 09/17/18 10:45 97.9 F 148/68 09/17/18 08:00 97.9 F 54 L 16 148/68 95 - General General Appearance: Alert, Oriented x3, Cooperative, No acute distress Limitations: Physical limitation (NWB to LLE) - Head Head exam: Normocephalic - Eye Eye exam: Normal appearance, PERRL - ENT ENT exam: Normal exam, Mucous membranes moist - Respiratory Respiratory exam: Normal lung sounds bilaterally - Cardiovascular Cardiovascular Exam: Regular rate, Normal rhythm, Normal heart sounds Peripheral Pulses: 2+: Dorsalis Pedis (R), Dorsalis Pedis (L), 3+: Radial (R), Radial (L) - GI/Abdominal GI/Abdominal exam: Soft, Normal bowel sounds - Rectal Rectal exam: Deferred - exam: Deferred - Extremities Extremities exam: Normal capillary refill, Other (left ankle dressed with guaze and boot ) - Neurological Neurological exam: Alert, Oriented X3 - Psychiatric Psychiatric exam: Normal affect, Normal mood - Skin Skin exam: Dry, Other (left ankle, surgical sutures remain, awaiting ortho confirmation to remove) Assessment and Plan - Assessment and Plan (1) Physical deconditioning Current Visit: Yes Status: Acute Base Code: R53.81 - OTHER MALAISE Comment: 09/17/18 -pt and daughter consulted today about refusing PT, pt had goals of being able to tolerate 2 hours of activities (ie attend her grandson's graduation). -pt was able to tolerate 7 hours of outside activity this weekend as she was with her family for the day -POC to d/c or sunday with possible home PT/OT and outpt infusion 09/14/18: - PT/OT: Patient is participating in therapy but has had some dizziness which limits her progress. She is to continue therapy daily as tolerated. (2) Ankle osteomyelitis, left Current Visit: Yes Status: Acute Base Code: M86.9 - OSTEOMYELITIS, UNSPECIFIED Comment: 09/17/18 -pt has sutures from most recent procedure, awaiting ortho to confirm removal plan -Hx of subtalar fusion in July [address] Edwardo Henson -Evidence of failed fusion with CT on 08/23/18 -Underwent debridement and washout on 08/26/18 @ [facility] with Dr. Fady Henson -Followed by Infectious Disease - Dr. 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 Comment: 09/17/18 -BMP ordered for the AM, continue current meds -pt to be set up for outpt IV infusion BID for cefepime and levaquin 750mg PO QD to continue until 10/23/18 09/09/18 -Therapy needed to treat Osteomyelitis to left ankle -IV Cefepime BID through 10/23/18 -PO Levaquin daily through 10/23/18 (4) Post concussion syndrome Current Visit: Yes Status: Acute Base Code: F07.81 - POSTCONCUSSIONAL SYNDROME Comment: 09/17/18 -dizzy spells improving per pt and daughter, while out with family yesterday, pt was able to tolderate mild nausea and dizziness, continue with activities and denied vomiting -not needing sunglasses inside as CROUCH are improving -potential [facility] rehab referral for post concussive evaluation -continue current meds 09/14/18 - Pt still having dizzy spells. - Continue Scopalomine patch, Reglan 5mg PO QID, Zofran 4mg q. 8 hours, Tylenol 650mg q4h PRN (5) DVT prophylaxis Current Visit: Yes Status: Acute Base Code: Z29.9 - ENCOUNTER FOR PROPHYLACTIC MEASURES, UNSPECIFIED Comment: 09/17/18 -Continue Lovenox 40mg subq daily (6) Full code status Current Visit: Yes Status: Acute Base Code: Z78.9 - OTHER SPECIFIED HEALTH STATUS Comment: 09/17/18 -Full code this admission Results - Labs Result Diagrams: 09/18/18 06:00 09/18/18 06:00 - Imaging and Cardiology CT scan - head Status: Report reviewed DVT/PE Assessment - Risk for VTE Risk for VTE: No Risk Level: High Risk Assessment Date: 09/14/18 Risk Assessment Time: 09:20 VTE Orders Placed or Will Be Placed: Yes - Active Medicaitons Current Medications: Current Medications Acetaminophen (Tylenol 325mg) 650 mg PO Q4H PRN PRN Reason: PAIN - MILD TO MODERATE (1-7) Last Admin: 09/15/18 21:36 Dose: 650 mg Documented by: Docusate Sodium (Colace) 100 mg PO DAILY [facility] Last Admin: 09/17/18 10:15 Dose: 100 mg Documented by: Enoxaparin Sodium (Lovenox) 40 mg SQ DAILY [facility] Last Admin: 09/17/18 10:16 Dose: 40 mg Documented by: CEFEPIME HCL 2 gm/ Sodium (Chloride) 100 mls @ 200 mls/hr IVPB Q12HR [facility] Stop: 10/23/18 22:29 Last Admin: 09/17/18 21:11 Dose: 200 mls/hr Documented by: Levofloxacin (Levaquin Tab) 750 mg PO DAILY [facility] Stop: 10/23/18 10:01 Last Admin: 09/17/18 10:15 Dose: 750 mg Documented by: Metoclopramide HCl (Reglan) 5 mg PO QIDACHS [facility] Last Admin: 09/17/18 21:10 Dose: 5 mg Documented by: Miscellaneous (Remove Patch) 1 each TD Q72H [facility] Last Admin: 09/16/18 10:43 Dose: 1 each Documented by: Ondansetron HCl (Zofran Odt) 4 mg SL Q8H PRN PRN Reason: NAUSEA [facility] Last Admin: 09/17/18 06:21 Dose: 40 mg Documented by: Polyethylene Glycol (Miralax) 17 gm PO DAILY [facility] Last Admin: 09/17/18 10:16 Dose: Not Given Documented by: Scopolamine (Transderm-Scop) 1 patch TD Q72H [facility] Last Admin: 09/16/18 10:43 Dose: 1 patch Documented by: Sertraline HCl (Zoloft) 100 mg PO DAILY [facility] Last Admin: 09/17/18 10:15 Dose: 100 mg Documented by: Vitamin D (Vitamin D3) 1,000 unit PO DAILY [facility] Last Admin: 09/17/18 10:15 Dose: 1,000 unit Documented by: AMI Plan - Labs Result Diagrams: 09/18/18 06:00 09/18/18 06:00
[2018-09-18] MEDS: PANTOPRAZOLE SODIUM 40 MG TABLET PO SCH (06:08)
[2018-09-18 07:13] LABS: ABSOLUTE NEUTROPHIL COUNT 4.15; BASO % 0.4 % (0-6); EOS % 3.3 % (0-6); GRAN % 75.1 % (47-80); HEMATOCRIT 35.9 % (35.0-47.0); HEMOGLOBIN 11.6 gm/dl (11.6-16.0); LYMPH % 14.3 % (16-45); MEAN CELL VOLUME 85.7 fl (81-97); MEAN CORPUSCULAR HEMOGLOBIN 27.7 pg (27-33); MEAN CORPUSCULAR HGB CONC 32.3 g/dl (32-36); MEAN PLATELET VOLUME 10.8 fl (7.4-10.4); MONO % 6.9 % (0-9); PLATELET COUNT 167 K/uL (130-400); RED BLOOD COUNT 4.19 M/uL (3.80-5.40); RED CELL DISTRIBUTION WIDTH 15.2 % (11.5-14.5); WHITE BLOOD COUNT W/O DIFF 5.5 K/uL (4.2-12.2)
[2018-09-18 07:25] LABS: BLOOD UREA NITROGEN 12 mg/dL (8-23); CREATININE 0.7 mg/dL (0.5-0.9); EST GLOMERULAR FILTRATION RATE > 60 mL/min; GLUCOSE,RANDOM 102 mg/dL (74-109)
[2018-09-18] MEDS: POTASSIUM CHLORIDE 20 MEQ/15ML CUP PO SCH ×2 (08:36→13:59)
[2018-09-18] MEDS: METOCLOPRAMIDE 10 MG TABLET PO SCH ×4 (08:36→23:20)
[2018-09-18] MEDS: ENOXAPARIN 40 MG/0.4 ML SYR SQ SCH (10:44)
[2018-09-18] MEDS: CEFEPIME HCL 2 GM in 0.9 % SODIUM CHLORIDE 100ML 100 ML IVPB SCH ×2 (10:44→23:18)
[2018-09-18] MEDS: LEVOFLOXACIN 500 MG TABLET PO SCH (10:46)
[2018-09-18] MEDS: DOCUSATE SODIUM 100 MG CAPSULE PO SCH (10:46)
[2018-09-18] MEDS: POLYETHYLENE GLY 17 GM PACKET PO SCH (10:47)
[2018-09-18] MEDS: CHOLECALCIFEROL 1,000 UNIT TABLET PO SCH (10:56)
[2018-09-18] MEDS: SERTRALINE HCL 50 MG TABLET PO SCH (10:56)
--- NOTE | 2018-09-18 13:46 | Occupational Therapy Tx Note ---
Occupational Therapy Tx Note - Treatment Note Tolerated: Good Total Time Spent With Patient: 40 (ADL) Occupational Therapy Treatment Note: Detail (S: Pt requesting to try showering again. O: Supine to sit Indly and pivot transferred to wheelchair with SBA. Pt propelled self to shower and pivot transferred to commode/shower seat with supervision. Pt doffed PJ top and briefs Indly. Pt completed total body showering Indly without rest breaks or c/o nausea. Pt dried self Indly and donned PJ gown indly. Pt transferred to wheelchair with supervision and propelled to toilet Indly and transferred to toilet with grab bar and supervision. Pt toileted and donned briefs Indly. Pt propelled self to recliner and pivot transferred to chair with supervision. A: Pt had less fatigue today and was Ind with showering in sitting. Pt continues to transfer with some weight bearing on right LE and is unable to maintain NWB status.) Occupational Therapy Problem List: Detail (1. Decreased Ind with total body dressing. 2. Decreased Ind with showering. 3. Decreased UE strength/endurance and overall activity tolerance. 4. Decreased Ind and safety with functional mobility needed for Ind self cares.) Occupational Therapy Goals: 1. Pt will be Ind with total body dressing. 2. Pt will be Ind with showering in sitting. 3. Pt will improve overall endurance and UE strength to allow safe and Ind ADLs and functional mobility Prognosis: Good Occupational Therapy Plan: OT 2-4 times per week to address self cares, endurance, UE strength and functional mobility needed for safe and Ind ADLs.
--- NOTE | 2018-09-18 14:01 | Physical Therapy Tx Note ---
Physical Therapy Tx Note - Treatment Note Physical Therapy Tx Note: Detail (Patient reports that she currently has no dif ficulty with mobility. Patient is independent with home exercises and declines wanting a stronger thera-band for her exercises. Patient currently has met all physical therapy goals of tolerating activity for greater than 20 minutes, independent with pivot transfers, and is independent with wheelchair mobility. At this time patient is discharged from subacute physical therapy.) Physical Therapy Problem List: Detail (1. Decreased sitting tolerance due to vertigo / post-concussive symptoms. 2. Decreased hip flexion strength impacting transfers and bed mobility. 3. Decreased tolerance for wheelchair propulsion for independent mobility.) Physical Therapy Goals: 1. Patient will tolerate sitting for 20 minutes consistently to complete seated exercises and progress patient towards goal of sitting at grandson's graduation. (met). 2. Will assess pivot transfer from sitting EOB to wheelchair. (met). 3. Will assess patient's wheelchair mobility. (met) Prognosis: Good Physical Therapy Plan: Patient is discharged from subacute PT.
[2018-09-19 06:37] LABS: BLOOD UREA NITROGEN 12 mg/dL (8-23); CREATININE 0.6 mg/dL (0.5-0.9); EST GLOMERULAR FILTRATION RATE > 60 mL/min; GLUCOSE,RANDOM 98 mg/dL (74-109)
[2018-09-19] MEDS: PANTOPRAZOLE SODIUM 40 MG TABLET PO SCH (06:59)
[2018-09-19] MEDS: METOCLOPRAMIDE 10 MG TABLET PO SCH ×4 (07:00→22:19)
[2018-09-19] MEDS: ACETAMINOPHEN 325 MG TAB PO PRN (09:19)
[2018-09-19] MEDS: CHOLECALCIFEROL 1,000 UNIT TABLET PO SCH (10:59)
[2018-09-19] MEDS: ENOXAPARIN 40 MG/0.4 ML SYR SQ SCH (10:59)
[2018-09-19] MEDS: LEVOFLOXACIN 500 MG TABLET PO SCH (11:00)
[2018-09-19] MEDS: POLYETHYLENE GLY 17 GM PACKET PO SCH (11:00)
[2018-09-19] MEDS: DOCUSATE SODIUM 100 MG CAPSULE PO SCH (11:00)
[2018-09-19] MEDS: REMOVE PATCH 1 EACH MISC TD SCH (11:01)
[2018-09-19] MEDS: SCOPOLAMINE 1 PATCH TDSY TD SCH (11:04)
[2018-09-19] MEDS: SERTRALINE HCL 50 MG TABLET PO SCH (11:04)
[2018-09-19] MEDS: CEFEPIME HCL 2 GM in 0.9 % SODIUM CHLORIDE 100ML 100 ML IVPB SCH ×2 (11:05→22:19)
[2018-09-20] MEDS: METOCLOPRAMIDE 10 MG TABLET PO SCH ×4 (06:57→21:33)
[2018-09-20] MEDS: PANTOPRAZOLE SODIUM 40 MG TABLET PO SCH (06:58)
--- NOTE | 2018-09-20 10:52 | Occupational Therapy Tx Note ---
Occupational Therapy Tx Note - Treatment Note Occupational Therapy Treatment Note: Detail (No OT scheduled today as pt is at an appointment.) Occupational Therapy Problem List: Detail (1. Decreased Ind with total body dressing. 2. Decreased Ind with showering. 3. Decreased UE strength/endur ance and overall activity tolerance. 4. Decreased Ind and safety with functional mobility needed for Ind self cares.) Occupational Therapy Goals: 1. Pt will be Ind with total body dressing. 2. Pt will be Ind with showering in sitting. 3. Pt will improve overall endurance and UE strength to allow safe and Ind ADLs and functional mobility Occupational Therapy Plan: OT 2-4 times per week to address self cares, endurance, UE strength and functional mobility needed for safe and Ind ADLs.
[2018-09-20] MEDS: CEFEPIME HCL 2 GM in 0.9 % SODIUM CHLORIDE 100ML 100 ML IVPB SCH ×2 (12:28→21:33)
[2018-09-20] MEDS: LEVOFLOXACIN 500 MG TABLET PO SCH (12:29)
[2018-09-20] MEDS: DOCUSATE SODIUM 100 MG CAPSULE PO SCH (12:29)
[2018-09-20] MEDS: ENOXAPARIN 40 MG/0.4 ML SYR SQ SCH (12:30)
[2018-09-20] MEDS: POLYETHYLENE GLY 17 GM PACKET PO SCH (12:30)
[2018-09-20] MEDS: CHOLECALCIFEROL 1,000 UNIT TABLET PO SCH (12:30)
[2018-09-20] MEDS: SERTRALINE HCL 50 MG TABLET PO SCH (12:31)
[2018-09-20] MEDS: HEPARIN SODIUM FLUSH 100 UNITS/ML SYR 5ML IV PRN (22:15)
[2018-09-21] MEDS: 0.9 % SODIUM CHLORIDE 10ML SYR IVP PRN ×2 (05:54→05:56)
[2018-09-21] MEDS: HEPARIN SODIUM FLUSH 100 UNITS/ML SYR 5ML IV PRN (05:55)
[2018-09-21 06:07] LABS: ABSOLUTE NEUTROPHIL COUNT 4.29; BASO % 0.2 % (0-6); EOS % 2.1 % (0-6); GRAN % 74.1 % (47-80); HEMATOCRIT 34.7 % (35.0-47.0); HEMOGLOBIN 11.2 gm/dl (11.6-16.0); LYMPH % 15.1 % (16-45); MEAN CELL VOLUME 86.1 fl (81-97); MEAN CORPUSCULAR HGB CONC 32.3 g/dl (32-36); MEAN PLATELET VOLUME 10.5 fl (7.4-10.4); MONO % 8.5 % (0-9); PLATELET COUNT 152 K/uL (130-400); RED BLOOD COUNT 4.03 M/uL (3.80-5.40); RED CELL DISTRIBUTION WIDTH 15.1 % (11.5-14.5); WHITE BLOOD COUNT W/O DIFF 5.8 K/uL (4.2-12.2)
[2018-09-21 06:08] LABS: MEAN CORPUSCULAR HEMOGLOBIN 27.7 pg (27-33)
[2018-09-21 06:31] LABS: BLOOD UREA NITROGEN 15 mg/dL (8-23); C-REACTIVE PROTEIN 0.34 mg/dL (<0.5); CREATININE 0.7 mg/dL (0.5-0.9); EST GLOMERULAR FILTRATION RATE > 60 mL/min; GLUCOSE,RANDOM 112 mg/dL (74-109)
[2018-09-21 06:47] LABS: ERYTHROCYTE SEDIMENTATION RATE 15 mm/hr (0-30)
[2018-09-21] MEDS: METOCLOPRAMIDE 10 MG TABLET PO SCH (06:58)
[2018-09-21] MEDS: PANTOPRAZOLE SODIUM 40 MG TABLET PO SCH (06:58)
--- NOTE | 2018-09-21 09:18 | Discharge Summary ---
Providers Discharge Summary Date: 09/21/18 Date of admission: 09/09/18 14:43 Expected Date of Discharge: 09/21/18 Attending physician: ERICA GRECO Primary care physician: RICK GRAVES D.O. Physical Exam - Vital Signs Vital Signs: Vital Signs - Last 24 Hrs Temp Pulse Resp BP Pulse Ox 09/21/18 07:52 98.2 F 54 L 18 160/64 98 09/20/18 20:00 98.0 F 61 20 153/72 98 - General General Appearance: Alert, Oriented x3, Cooperative, No acute distress Limitations: Physical limitation (NWB to LLE) - Head Head exam: Normocephalic - Eye Eye exam: Normal appearance, PERRL - ENT ENT exam: Normal exam, Mucous membranes moist - Respiratory Respiratory exam: Normal lung sounds bilaterally - Cardiovascular Cardiovascular Exam: Regular rate, Normal rhythm, Normal heart sounds Peripheral Pulses: 2+: Dorsalis Pedis (R), Dorsalis Pedis (L), 3+: Radial (R), Radial (L) - GI/Abdominal GI/Abdominal exam: Soft, Normal bowel sounds - Rectal Rectal exam: Deferred - exam: Deferred - Extremities Extremities exam: Normal capillary refill, Other (left ankle dressed with guaze and boot, sutures removed by ortho, steri stripes now) - Neurological Neurological exam: Alert, Oriented X3 - Psychiatric Psychiatric exam: Normal affect, Normal mood - Skin Skin exam: Dry, Other (left ankle, sutures removed by ortho, steri stripes intact) Hospitalization - Hospitalization Admission Diagnosis: Deconditioning due to fall - Problem List (1) Physical deconditioning Current Visit: Yes Status: Acute Base Code: R53.81 - OTHER MALAISE Comment: 09/21/18 -pt has made her goals, able to tolerate activity 5-6 hours at a time and dizziness/nasuea tolerable -home services completed by lilo oliveira 09/17/18 -pt and daughter consulted today about refusing PT, pt had goals of being able to tolerate 2 hours of activities (ie attend her grandson's graduation). -pt was able to tolerate 7 hours of outside activity this weekend as she was with her family for the day -POC to d/c or sunday with possible home PT/OT and outpt infusion 09/14/18: - PT/OT: Patient is participating in therapy but has had some dizziness which limits her progress. She is to continue therapy daily as tolerated. (2) Ankle osteomyelitis, left Current Visit: Yes Status: Acute Base Code: M86.9 - OSTEOMYELITIS, UNSPECIFIED Comment: 09/21/18 -sutures removed yesterday by ortho during outpt follow up appt. steri stripes remain intact -home IV abx to continue until 10/23/18 -home infusion treatments have been organized by respiratory care specialist d/c today -labs reviewed unremarkable 09/17/18 -pt has sutures from most recent procedure, awaiting ortho to confirm removal plan -Hx of subtalar fusion in July [address] Edwardo Henson -Evidence of failed fusion with CT on 08/23/18 -Underwent debridement and washout on 08/26/18 @ [facility] with Dr. Fady Henson -Followed by Infectious Disease - Dr. 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 Comment: 09/21/18 -ID and ortho managing home ABX -labs to be monitored by ID at home 09/17/18 -BMP ordered for the AM, continue current meds -pt to be set up for outpt IV infusion BID for cefepime and levaquin 750mg PO QD to continue until 10/23/18 09/09/18 -Therapy needed to treat Osteomyelitis to left ankle -IV Cefepime BID through 10/23/18 -PO Levaquin daily through 10/23/18 (4) Post concussion syndrome Current Visit: Yes Status: Acute Base Code: F07.81 - POSTCONCUSSIONAL SYNDROME Comment: 09/21/18 -pt reports improved symptoms, able to come ADLs and go out with family several times this admission -ready for d/c, f/u PCP for further concerns 09/17/18 -dizzy spells improving per pt and daughter, while out with family yesterday, pt was able to tolderate mild nausea and dizziness, continue with activities and denied vomiting -not needing sunglasses inside as CROUCH are improving -potential [facility] rehab referral for post concussive evaluation -continue current meds 09/14/18 - Pt still having dizzy spells. - Continue Scopalomine patch, Reglan 5mg PO QID, Zofran 4mg q. 8 hours, Tylenol 650mg q4h PRN (5) DVT prophylaxis Current Visit: Yes Status: Acute Base Code: Z29.9 - ENCOUNTER FOR PROPHYLACTIC MEASURES, UNSPECIFIED Comment: 09/21/18 -Continue Lovenox 40mg subq daily (6) Full code status Current Visit: Yes Status: Acute Base Code: Z78.9 - OTHER SPECIFIED HEALTH STATUS Comment: 09/21/18 -Full code this admission - Hospitalization Course Disposition: Home Health Service Hospital Course: Erendira Early is an 82 y.o. F who admits to the Swing Bed Program d/t physical deconditioning and need for IV Therapy. Was recently hospitalized at [facility] from 08/26/2018 to 08/29/2018 for surgical debridement and removal of fixation screws with placement of antibiotic cement/beads d/t hx of left ankle fx that developed osteomyelitis. While there, she was seen by I.D. (Dr. Rogelio Srivastava) and was placed on Cefepime 2grams IVPB q. 12 hours and Levaquin 750mg PO q. 48 hours through 10/23/2018. She was discharged home with outpatient IV Therapy. While being transferred during her outpatient IV therapy, she fell out of her wheelchair and hit the back of her head. She was admitted to [facility] from 08/30/18 to 09/09/18 d/t subarachnoid hemorrhage and closed fracture of the occipital bone. Now has postconcussive syndrome. Other PMHx includes anxiety, depression, arthritis, skin cancer, GERD, incontinence. 09/09/18 1700 Reports that she has a left frontal headache. Helps when she wears sunglasses. Is doing well with Tylenol for pain control. Doesn't feel a need to take Oxycodone as was ordered in the hospital. Has been very dizzy. Was put on Reglan, Scopalomine patch, Zofran and Antivert with little effectiveness. Reports that bowels are moving now, although they weren't a few days ago. Abnormal Labs: Abnormal Lab Results 09/18/18 09/18/18 09/19/18 Range/Units 06:14 06:14 06:10 Hgb (11.6-16.0) gm/dl Hct (35.0-47.0) % RDW 15.2 H (11.5-14.5) % MPV 10.8 H (7.4-10.4) fl Lymphocytes % 14.3 L (16-45) % Potassium 3.0 L (3.4-4.5) mmol/L Chloride 108 H (98-107) mmol/L Random Glucose (74-109) mg/dL 09/21/18 09/21/18 Range/Units 06:00 06:00 Hgb 11.2 L (11.6-16.0) gm/dl Hct 34.7 L (35.0-47.0) % RDW 15.1 H (11.5-14.5) % MPV 10.5 H (7.4-10.4) fl Lymphocytes % 15.1 L (16-45) % Potassium (3.4-4.5) mmol/L Chloride (98-107) mmol/L Random Glucose 112 H (74-109) mg/dL Condition at Discharge: (2) Stable Discharge Medications - Discharge Medications Prescriptions: Polyethylene Glycol 3350 [Miralax] 17 gm PO DAILY 14 Days #14 packet Pantoprazole Sodium [Protonix] 40 mg PO DAILYAC 14 Days #14 tablet. Metoclopramide HCl [Reglan] 5 mg PO QIDACHS 10 Days #40 tablet Scopolamine [Transderm-Scop] 1 patch TD Q72H #3 tdsy Ondansetron [Zofran Odt] 4 mg SL Q8H PRN 10 Days #30 tab.rapdis PRN Reason: Nausea Home Medications: Ambulatory Orders Omeprazole [Prilosec] 40 mg PO DAILY 02/06/14 [Last Taken 09/26/17] Sertraline HCl [Zoloft] 20 mg PO DAILY 02/06/14 [Last Taken 09/26/17] Cyclobenzaprine HCl [Flexeril] 5 mg PO ASDIR 09/27/17 [Last Taken 09/27/17] Oxycodone HCl/Acetaminophen [Percocet 5mg/325mg] 1 tab PO Q6H PRN 09/27/17 [Last Taken 09/27/17] Acetaminophen [Tylenol 325Mg] 650 mg PO Q4H PRN tablet 09/21/18 [Last Taken Unknown] Docusate Sodium [Colace] 100 mg PO DAILY cap 09/21/18 [Last Taken Unknown] Levofloxacin [Levaquin] 750 mg PO DAILY tablet 09/21/18 [Last Taken Unknown] Metoclopramide HCl [Reglan] 5 mg PO QIDACHS 10 Days #40 tablet 09/21/18 [Last Taken Unknown] Ondansetron [Zofran Odt] 4 mg SL Q8H PRN 10 Days #30 tab.rapdis 09/21/18 [Last Taken Unknown] Pantoprazole Sodium [Protonix] 40 mg PO DAILYAC 14 Days #14 tablet. 09/21/18 [Last Taken Unknown] Polyethylene Glycol 3350 [Miralax] 17 gm PO DAILY 14 Days #14 packet 09/21/18 [Last Taken Unknown] Scopolamine [Transderm-Scop] 1 patch TD Q72H #3 tdsy 09/21/18 [Last Taken Unknown] Discharge Plan - Discharge Instructions Activity at Discharge: As Per Physical Therapy Diet at Discharge: Advance to Usual Diet Additional Instructions: [facility] will see you at home beginning on SundaySeptember 21 in the late afternoon/evening. They will call to provide you with a time. [facility] can be reached at [phone]. [facility] will deliver your antibiotics to your home Sunday around 5PM. Jennifer's main phone # is [phone]. Appoint[address] Srivastava on October 22 at 10:30. Please arrive 15 minutes early and bring new patient paperwork with you. [id number] [place] [address]; [phone] Quality Measures - Quality Measures Quality Measures: Advance Directives, Documentation of Current Medications in Medical Record, Elder Maltreatment Screen and Follow-Up Plan, Screening for High Blood Pressure and F/U Documented - Current Medications Quality Measure: Measure #130: Documentation of Current Medications Documentation of Current Medications: <Current Medications Documented/Reviewed> [G8427] - Blood Pressure Screening Quality Measure: Screening for High Blood Pressure and Follow-Up Documented Does Patient Have Any of the Following: Active Dx of HTN Blood Pressure Classification: Hypertensive Reading Systolic Measurement: 144 Diastolic Measurement: 62 Screening for High Blood Pressure: Patient Exclusion, Hx of HTN [G9744] - Advance Directives Quality Measure: Measure #47: Care Plan Advance Directives Established: No Advance Directives Information Provided To Patient: No Advance Directives on File: No Living Will: Yes Power of Land Commissioner: Yes Power of Land Commissioner Name: huber Advance Care Planning: <Care Plan/Decision Maker Documented; Discussed & Documented> [1123F] - Elder Abuse Suspicion Index Screening: Elder Abuse Suspicion Index Screening Rely on people for bathing, dressing, shopping, banking, etc: Yes Prevented from getting food, clothes, medication, etc: No Made to feel shamed or threatened by someone: No Forced to sign papers or use money against will: No Feel afraid, touched in ways not wanted or hurt physically: No Poor eye contact, withdrawn, malnourished, cuts or bruises: No Screening Result: Negative result EASI Reference Information: Jeaneth WILSON, Suzie C, Jerod D, Hope Padgett.Development and validation of a tool to assist physicians identification of elder abuse: The Elder Abuse Suspicion Index (EASI ). Journal of Elder Abuse and Neglect, 2008; 20 (3): 276-300. - Elder Maltreatment Screen Quality Measures: Elder Maltreatment Screen and Follow-Up Plan Elder Maltreatment Screen: <Negative, No Follow-Up Plan Required> [G8734]
[2018-09-21] MEDS: CHOLECALCIFEROL 1,000 UNIT TABLET PO SCH (10:14)
[2018-09-21] MEDS: SERTRALINE HCL 50 MG TABLET PO SCH (10:14)
[2018-09-21] MEDS: DOCUSATE SODIUM 100 MG CAPSULE PO SCH (10:14)
[2018-09-21] MEDS: LEVOFLOXACIN 500 MG TABLET PO SCH (10:14)
[2018-09-21] MEDS: POLYETHYLENE GLY 17 GM PACKET PO SCH (10:16)
[2018-09-21] MEDS: CEFEPIME HCL 2 GM in 0.9 % SODIUM CHLORIDE 100ML 100 ML IVPB SCH (10:18)
[2018-09-21] MEDS: ENOXAPARIN 40 MG/0.4 ML SYR SQ SCH (11:16)
--- NOTE | 2018-09-23 13:31 | Rehab Discharge Summary ---
Patient Information - Patient Information Diagnosis: Deconditioning r/t fall, head injury and L foot osteomyelitis Ordered Treatment: OT Evaluate and Treat Past Medical/Surgical Hx: PAST MEDICAL/SURGICAL HISTORY Past Surgical History hysterectomy appendix bowel gallbladder left shoulder repair screws and plate in left foot r/t fx left foot/ankle PMH - Respiratory Hx Respiratory Disorders No PMH - Cardiovascular Hx Cardiovascular Disorders Yes Hx Hypertension Yes Comment: Pt states that she has very minor HTN, Will follow up with PCP PMH - Neuro Hx Neurological Disorders No Hx Dizziness Yes Comment: hemmorhage PMH - GI Hx Gastrointestinal Disorders Yes Hx Diverticulitis Yes Hx Gastroesophageal Reflux Yes Hx Obstructive Bowel Yes: Bowel surgery in 1966 PMH - Hx Genitourinary Disorders No Comment: weak bladder, stress incontinence PMH - Endocrine Hx Endocrine Disorders No Hx Diabetes No Hx Thyroid Disease No PMH - Musculoskeletal Hx Musculoskeletal Disorders Yes Hx Arthritis Yes Comment: osteomyelitis PMH - Psych Hx Psychiatric Problems No PMH - Hematology/Oncology Hx Hematology/Oncology No Disorders Premorbid Status: Detail (Patient received surgery on L ankle following a fracture approximately 1 year ago, but acquired osteomyelitis and required surgical intervention. Patient was discharged and was receiving outpatient IV therapy when she fell out of her wheelchair and hit her head. Patient was diagnosed with subarachnoid hemorrhage and fx of occipital bone from [facility]. Patient reports that over the past year following initial surgery, she has not fully recovered and has been using the wheelchair for her primary method of locomotion. Patient reports that she requires help from her daughter getting settled in the shower but is able to bathe herself independently. Patient's daughter reports that she would like her to work on strengthening her arms and legs to aide in transfers.) Social History: Detail (Patient previously lived with her daughter but will be living with her oldest daughter upon discharge. Her eldest daughter is and both are retired and are able to help patient with ADL's. Patient reports that there is a ramp for the entrance of the home with no stairs throughout the home. Patient reports that the bathroom has a tub, but has a shower bench present with a hand-held shower. No grab bars are present, but there are grab bars present on the shower bench. Patient reports that the toilet is elevated and has handles around it but no grab bars around the toilet. Patient also reports that she has a commode available. Patient reports that her primary goal is to be discharged by next Sunday to attend [facility] graduation. She has an electric wheelchair, a 4 wheeled walker, a 2 wheeled walker and a manual wheelchair. Prior to this illness pt was Ind with dressing self, bathing self after being assisted with shower transfer, washing dishes while seated on a stool, propelling her wheelchair and transferring.) Precautions: [place], Fall, Other (Pt has significant dizziness at times. NWB left LE) Objective Data - Pain Pain Present: No - Mental Status Patient Orientation: Oriented x3 - Visual Perception Appears within normal limits for therapeutic activities - ROM Not within normal limits (Claudio shoulder flexion limited to approx 90 degrees although functional for patients level of activity) - Strength/Tone Within normal limits (Claudio UE strength 4 to 4+/5, strength is functional for patients activity level) - Coordination Appears within normal limits for therapeutic activities - Bed Mobility Independent (Ind with supine to sit and sit to supine) - Transfers Independent (Pt is Ind with pivot transfers from EOB to wheelchair and from w heelchair to commode or shower seat or recliner. She was unable to maintain NWB status during transfers even with verbal cueing.) - Balance Balance Sitting: Good Balance Standing: Fair - Sensation Intact - Gait Detail (Pt is non ambulatory at this time. She was Ind with wheelchair mobility) - ADL's/IADL's Detail (Pt was Ind with showering in sitting, toileting, total body dressing and grooming/hygiene) Therapy Assessment - Therapy Assessment Detail (Pt is Ind with self cares and functional mobility needed for ADLs.) Problem List - Problem List Physical Therapy Problem List: Detail (1. Decreased sitting tolerance due to vertigo / post-concussive symptoms. 2. Decreased hip flexion strength impacting transfers and bed mobility. 3. Decreased tolerance for wheelchair propulsion for independent mobility.) Occupational Therapy Problem List: Detail (1. Decreased Ind with total body dressing. 2. Decreased Ind with showering. 3. Decreased UE strength/endurance and overall activity tolerance. 4. Decreased Ind and safety with functional mobility needed for Ind self cares.) Goals - Goals Physical Therapy Goals: 1. Patient will tolerate sitting for 20 minutes consistently to complete seated exercises and progress patient towards goal of sitting at [facility]. (met). 2. Will assess pivot transfer from sitting EOB to wheelchair. (met). 3. Will assess patient's wheelchair mobility. (met) Occupational Therapy Goals: Goals Met: 1. Pt will be Ind with total body dressing. 2. Pt will be Ind with showering in sitting. 3. Pt will improve overall endurance and UE strength to allow safe and Ind ADLs and functional mobility Prognosis - Prognosis Good Plan - Plan Physical Therapy Plan: Patient is discharged from subacute PT. Occupational Therapy Plan: Pt discharged home with home therapy.
--- NOTE | 2018-09-23 16:54 | Rehab Discharge Summary ---
Patient Information - Patient Information Diagnosis: Deconditioning r/t fall, head injury and L foot osteomyelitis Ordered Treatment: PT Evaluate and Treat Past Medical/Surgical Hx: PAST MEDICAL/SURGICAL HISTORY Past Surgical History hysterectomy appendix bowel gallbladder left shoulder repair screws and plate in left foot r/t fx left foot/ankle PMH - Respiratory Hx Respiratory Disorders No PMH - Cardiovascular Hx Cardiovascular Disorders Yes Hx Hypertension Yes Comment: Pt states that she has very minor HTN, Will follow up with PCP PMH - Neuro Hx Neurological Disorders No Hx Dizziness Yes Comment: hemmorhage PMH - GI Hx Gastrointestinal Disorders Yes Hx Diverticulitis Yes Hx Gastroesophageal Reflux Yes Hx Obstructive Bowel Yes: Bowel surgery in 1966 PMH - Hx Genitourinary Disorders No Comment: weak bladder, stress incontinence PMH - Endocrine Hx Endocrine Disorders No Hx Diabetes No Hx Thyroid Disease No PMH - Musculoskeletal Hx Musculoskeletal Disorders Yes Hx Arthritis Yes Comment: osteomyelitis PMH - Psych Hx Psychiatric Problems No PMH - Hematology/Oncology Hx Hematology/Oncology No Disorders Premorbid Status: Detail (Patient received surgery on L ankle following a fracture approximately 1 year ago, but acquired osteomyelitis and required surgical intervention. Patient was discharged and was receiving outpatient IV therapy when she fell out of her wheelchair and hit her head. Patient was diagnosed with subarachnoid hemorrhage and fx of occipital bone from [facility]. Patient reports that over the past year following initial surgery, she has not fully recovered and has been using the wheelchair for her primary method of locomotion. Patient reports that she requires help from her daughter getting settled in the shower but is able to bathe herself independently. Patient's daughter reports that she would like her to work on strengthening her arms and legs to aide in transfers.) Social History: Detail (Patient previously lived with her daughter but will be living with her oldest daughter upon discharge. Her eldest daughter is and both are retired and are able to help patient with ADL's. Patient reports that there is a ramp for the entrance of the home with no stairs throughout the home. Patient reports that the bathroom has a tub, but has a shower bench present with a hand-held shower. No grab bars are present, but there are grab bars present on the shower bench. Patient reports that the toilet is elevated and has handles around it but no grab bars around the toilet. Patient also reports that she has a commode available. Patient reports that her primary goal is to be discharged by next Sunday to attend grandson's graduation. She has an electric wheelchair, a 4 wheeled walker, a 2 wheeled walker and a manual wheelchair. Prior to this illness pt was Ind with dressing self, bathing self after being assisted with shower transfer, washing dishes while seated on a stool, propelling her wheelchair and transferring.) Precautions: [place], Fall, Other (Pt has significant dizziness at times. NWB left LE) Objective Data - Mental Status Patient Orientation: Oriented x3 - ROM Not within normal limits (Patient's range of motion was assessed functionally throughout patient's stay with bed mobility and transfers. Patient's left ankle was not fully assessed due to post-surgical status; however, remainder of lower extremity range of motion appeared within functional limits.) - Strength/Tone Not within normal limits (Patient was assessed at initial evaluation using manual muscle testing. Patient was found to have 3/5 strength with hip flexion bilaterally. Patient's strength was assessed upon discharge functionally with pivot transfers, car transfer, and bed mobility. Patient was deemed independent with all transfers and required supervision indicating that her strength is sufficient for functional activities.) - Coordination Appears within normal limits for therapeutic activities (Patient was assessed for coordination with upper and lower extremities. Patient demonstrated the ability to sit on the edge of the bed and put on shocks and shoes with supervision assistance and no loss of balance. Patient also was assessed for upper extremity coordination with completing ADL tasks such as opening toothpaste bottle, brushing teeth/hair, opening and applying deoderant, and opening and applying lotion to arms.) - Bed Mobility Independent (Patient was assessed completing supine to sitting EOB and was deemed independent. Upon return back to supine, patient completed transfer with left knee first, crawling forward, and swinging body around into bed while maintaining non-weight bearing status. Patient was deemed independent with transfer requiring supervision assistance x1 for safety and required no verbal/tactile cueing.) - Transfers Independent (Patient was assessed completing pivot transfers from the edge of the bed to her wheelchair and back. Patient completed transfer with bringing left knee to edge of bed or wheelchair and swinging body around while maintaining weight bearing status. Patient required no verbal / tactile cueing and required supervision assistance x1. Patient was also assessed completing car transfer with similar transfer procedure. Patient transfered from wheelchair into mini van entering with left knee first, pulling self up with the chair and crawling forward into the van. Patient maintained non-weight bearing status throughout and required verbal cueing to slow down and breathe due to increased symptoms of dizziness. Patient was independent with car transfer and required only supervision assistance for the procedure.) - Balance Balance Sitting: Good (Patient demonstrated great sitting balance and was able to complete activities with head turns and reaching for objects outside of her base of support. Patient was also able to maintain midline throughout while simultaneously completing dual tasks.) - Gait Detail (Patient uses wheelchair as primary method of locomotion and was assessed in wheelchair mobility. Patient propelled wheelchair total distance of 500 feet with rest breaks every 50-100 feet. Patient is able to independently propel wheelchair over different surfaces, through automatic doors, and up/down ramps.) Therapy Assessment - Therapy Assessment Detail (Due to patient meeting all physical therapy goals and being independent with all transfers, bed mobility, and wheelchair mobility, patient is being discharged from subacute rehab PT.) Problem List - Problem List Physical Therapy Problem List: Detail (1. Decreased sitting tolerance due to vertigo / post-concussive symptoms. 2. Decreased hip flexion strength impacting transfers and bed mobility. 3. Decreased tolerance for wheelchair propulsion for independent mobility.) Occupational Therapy Problem List: Detail (1. Decreased Ind with total body dressing. 2. Decreased Ind with showering. 3. Decreased UE strength/endurance and overall activity tolerance. 4. Decreased Ind and safety with functional mobility needed for Ind self cares.) Goals - Goals Physical Therapy Goals: 1. Patient will tolerate sitting for 20 minutes consistently to complete seated exercises and progress patient towards goal of sitting at grandson's graduation. (met). 2. Will assess pivot transfer from sitting EOB to wheelchair. (met). 3. Will assess patient's wheelchair mobility. (met) Occupational Therapy Goals: Goals Met: 1. Pt will be Ind with total body dressing. 2. Pt will be Ind with showering in sitting. 3. Pt will improve overall endurance and UE strength to allow safe and Ind ADLs and functional mobility Plan - Plan Physical Therapy Plan: Patient is discharged from subacute PT. Occupational Therapy Plan: Pt discharged home with home therapy.
== END 2018-09-21 11:05 | disposition home health service (06) | DRG 103 ==
LOC: MEDSURG 14:43
PROVIDERS: ADMIT Internal Medicine; ATTEND Internal Medicine
DX: F07.81 Postconcussional syndrome (principal); S02.119A Unspecified fracture of occiput, initial encounter for closed fracture; M86.9 Osteomyelitis, unspecified; M86.172 Other acute osteomyelitis, left ankle and foot; Z79.2 Long term (current) use of antibiotics; I10 Essential (primary) hypertension; K21.9 Gastro-esophageal reflux disease without esophagitis; N39.3 Stress incontinence (female) (male); W05.0XXA Fall from non-moving wheelchair, initial encounter
CPT/HCPCS: 80048; 85025; 85651; 86140; 90670; 97110; 97530; 97535; 99306; 99309; 99316; J1650